=== PATIENT | female | born 1980 | race Caucasian/White ===

== ENCOUNTER 2024-04-24 10:12 | Outpatient (OUT) | payer BC, SELFPAY ==
[2024-04-24 11:44] LABS: Anion Gap 8.6; BUN Creatinine Ratio 18.6; Calcium 9.1 mg/dL (8.5-10.1); Carbon Dioxide 34.1 mmol/L (21.0-32.0); Chloride 102 mmol/L (98-107); Chol HDL Ratio 2.7; Cholesterol 206 mg/dL (<=200); Estimated GFR (African America >60 (>=60); Estimated GFR (Non-African Ame >60 (>=60); Glucose 96 mg/dL (74-106); HDL Cholesterol 76 mg/dL (40-60); Potassium 3.7 mmol/L (3.5-5.1); Sodium 141 mmol/L (136-145); Triglycerides 60 mg/dL (<=150)
== END 2024-04-24 10:13 | disposition home or self-care (01) ==
PROVIDERS: PCP Family Medicine; Visit Provider Family Medicine
DX: Z00.00 Encounter for general adult medical examination without abnormal findings (principal)
CPT/HCPCS: 36415; 80048; 80061

== ENCOUNTER 2024-12-12 10:51 | Observation (INO) | payer BC, SELFPAY ==
[2024-12-12] VITALS (54 sets, daily range): BP systolic 142–185; BP diastolic 74–114; PULSE 61–119; TEMP 36.8–37.1; O2SAT 86–98; BMI 62.0; BMI 66.1
--- NOTE | 2024-12-12 11:09 | ECG_ITS ---
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
[2024-12-12 11:44] LABS: Basophils Absolute Auto 0.1 10^3/uL (0.0-0.1); Basophils Percent Auto 0.8 % (0.2-2.0); Eosinophils Absolute Auto 0.1 10^3/uL (0.0-0.7); Eosinophils Percent Auto 0.8 % (0.9-7.0); Hematocrit 40.7 % (36.0-48.0); Hemoglobin 12.8 g/dL (12.0-16.0); Immature Granulocytes Abs Auto 0.03 10^3/uL (0.00-0.03); Immature Granulocytes Pct Auto 0.3 % (0.0-0.5); Lymphocytes Absolute Auto 0.9 10^3/uL (1.2-3.8); Mean Corpuscular HGB Conc 31.4 g/dL (29.9-35.2); Mean Corpuscular Hemoglobin 26.9 pg (26.7-34.0); Mean Corpuscular Volume 85.7 fL (81.0-99.0); Mean Platelet Volume 8.8 fL (9.5-13.5); Monocytes Absolute Auto 0.6 10^3/uL (0.3-0.8); Monocytes Percent Auto 5.6 % (1.7-12.0); Neutrophils Absolute Auto 8.7 10^3/uL (1.4-6.5); Neutrophils Percent Auto 83.5 % (43.0-75.0); Platelet Count 345 10^3/uL (150-450); Red Blood Count 4.75 10^6/uL (4.20-5.40); Red Cell Distribution Width 13.5 % (11.0-15.0); White Blood Count 10.4 10^3/uL (4.0-11.0)
[2024-12-12 11:48] LABS: Influenza Virus A Antigen Negative; Influenza Virus B Antigen Negative; Internal Control Within Normal Limits; SARS-CoV-2 Ag NEGATIVE (NEGATIVE)
[2024-12-12 11:59] LABS: Alanine Aminotransferase 118 U/L (14-59); Albumin Globulin Ratio 0.8; Alkaline Phosphatase 130 U/L (46-116); Anion Gap 11.3; Aspartate Amino Transferase 43 U/L (15-37); BUN Creatinine Ratio 14.6; Bilirubin Total 0.6 mg/dL (0.2-1.0); Calcium 8.6 mg/dL (8.5-10.1); Carbon Dioxide 30.6 mmol/L (21.0-32.0); Chloride 105 mmol/L (98-107); Estimated GFR (African America >60 (>=60 mL/min/1.73m^2); Estimated GFR (Non-African Ame >60 (>=60 mL/min/1.73m^2); Globulin 3.8 g/dL; Glucose 105 mg/dL (74-106); Potassium 3.9 mmol/L (3.5-5.1); Sodium 143 mmol/L (136-145); Total Protein 6.8 g/dL (6.4-8.2)
[2024-12-12 12:07] LABS: Troponin I High Sensitivity 23.4 pg/mL (4.0-51.3)
--- NOTE | 2024-12-12 12:12 | ED_ITS ---
HPI - SOB/Dyspnea General Chief Complaint: Shortness of Breath/Dyspnea Stated Complaint: SHORT OF BREATH Time Seen by Provider: 12/12/24 11:09 Source: patient Mode of arrival: Wheelchair Limitations: no limitations History of Present Illness HPI Narrative: The patient is a 44-year-old female is coming to us after she was evaluated by her primary care, apparently she has been having this bilateral leg edema that i s chronic but recently she has been having also shortness of breath, the patient has been having shortness of breath for the last 2 weeks she mentioned over the last few days got worse, at the baseline the patient is saturating at the lower 90s at 89 some time on exertion while she is at room air, the patient was provided with 2 L nasal cannula upon arrival The patient currently just take contraceptive she does not have any history of any hypertension or diabetes The patient also mentioned that she have a chronic leg edema she was noted to have bilateral 1+ edema on examination Related Data Home Medications ?Medication ?Instructions ?Recorded ?Confirmed norgestimate 0.25 mg-ethinyl 1 tab PO DAILY 12/12/24 0 12/12/24 estradiol 0.035 mg tablet (Sprintec (28)) Allergies Allergy/AdvReac Type Severity Reaction Status Date / Time No Known Drug Allergies Allergy Verified 12/12/24 11:01 Review of Systems ROS Status of ROS 10 or more systems reviewed and unremark able except as noted in history and below PFSH PFSH Social History Little interest or pleasure in doing things: not at all Feeling down, depressed, or hopeless: not at all Exam Narrative Exam Narrative: Nurses notes and vital signs reviewed and patient is not hypoxic. General: Well-appearing and in no apparent distress. Skin: Warm, dry, no pallor noted. No rash. Head: Normocephalic, atraumatic. Neck: Supple, non-tender. Eye: Pupils are equal, round and EOMI. No scleral icterus. Ears, Nose, Mouth, and Throat: TM are clear, no nasal mucosal hypertrophy. Ora l mucosa is moist, no posterior oropharynx erythema, uvula is mid-line Cardiovascular: Regular Rate and Rhythm without murmur, gallop or rub. Respiratory: Distant breathing sound bilaterally and mild expiratory wheezes that is distant Back: No midline thoracic or lumbar vertebral tenderness. No CVA tenderness Musculoskeletal: normal ROM, no calf or popliteal tenderness, 1+ pitting edema bilaterally GI: Abdomen is soft, non-distended. Normal bowel sounds. No masses appreciated. No tenderness to palpation. No rebound, guarding, or rigidity noted. Neurological: A&O x4. No cranial nerve dysfunction observed. Constitutional Vital Signs, click to edit/add: Last Vital Signs Temp 98.3 F 12/12/24 10:56 Pulse 105 H 12/12/24 13:58 Resp 24 H 12/12/24 11:30 BP 150/105 H 12/12/24 13:58 Pulse Ox 94 L 12/12/24 13:58 O2 Del Method Nasal Cannula 12/12/24 11:39 O2 Flow Rate 2 12/12/24 13:58 Course Vital Signs Vital signs: Vital Signs Temperature 98.3 F 12/12/24 10:56 Pulse Rate 104 H 12/12/24 10:56 Respiratory Rate 24 H 12/12/24 10:56 Blood Pressure 178/92 H 12/12/24 10:56 Pulse Oximetry 95 12/12/24 10:56 Oxygen Delivery Method Room Air 12/12/24 10:56 Temperature 98.3 F 12/12/24 10:56 Pulse Rate 105 H 12/12/24 13:58 Respiratory Rate 24 H 12/12/24 11:30 Blood Pressure 150/105 H 12/12/24 13:58 Pulse Oximetry 94 L 12/12/24 13:58 Oxygen Delivery Method Nasal Cannula 12/12/24 11:39 Oxygen Delivery Flow Rate 2 12/12/24 13:58 MDM - SOB/Dyspnea MDM Narrative Medical decision making narrative: The patient EKG upon arrival showing A-fib with a heart rate of [address] elevation noted although the patient does have some left bundle regulo block No previous EKG for comparison but the patient symptoms has been normal at least for a week The patient first troponin was negative her BNP up is more than 4000 CBC and chemistry showed no acute pathology but the D-dimer was elevated CT PE was negative The patient does have bilateral small effusion which could be secondary to CHF exacerbation Patient was started on Lasix 40 mg IV The patient had a CTPA that was negative after the D-dimer was elevated Yu catheter was placed Troponin repeated twice was negative The patient after 6 hours was feeling better and her rate is controlled at 83 with a Cardizem drip I discussed the case with Dr. Coleman and right now we will keep the patient here as she is improving The patient's case was discussed with and he agreed on admitting the patient for further evaluation Lab Data Labs: Lab Results 12/12/24 12/12/24 Range/Units 11:25 14:30 WBC 10.4 (4.0-11.0) 10^3/uL RBC 4.75 (4.20-5.40) 10^6/uL Hgb 12.8 (12.0-16.0) g/dL Hct 40.7 (36.0-48.0) % MCV 85.7 (81.0-99.0) fL MCH 26.9 (26.7-34.0) pg MCHC 31.4 (29.9-35.2) g/dL RDW 13.5 (11.0-15.0) % Plt Count 345 (150-450) 10^3/uL MPV 8.8 L (9.5-13.5) fL Neut % (Auto) 83.5 H (43.0-75.0) % Lymph % (Auto) 9.0 L (20.5-60.0) % [place] % (Auto) 5.6 (1.7-12.0) % Eos % (Auto) 0.8 L (0.9-7.0) % Baso % (Auto) 0.8 (0.2-2.0) % Neut # (Auto) 8.7 H (1.4-6.5) 10^3/uL Lymph # (Auto) 0.9 L (1.2-3.8) 10^3/uL [place] # (Auto) 0.6 (0.3-0.8) 10^3/uL Eos # (Auto) 0.1 (0.0-0.7) 10^3/uL Baso # (Auto) 0.1 (0.0-0.1) 10^3/uL Abs Immat Gran (auto) 0.03 (0.00-0.03) 10^3/uL Imm/Tot Granulo (auto) 0.3 (0.0-0.5) % D-Dimer 0.98 H* (<=0.59) mg/L FEU Sodium 143 (136-145) mmol/L Potassium 3.9 (3.5-5.1) mmol/L Chloride 105 (98-107) mmol/L Carbon Dioxide 30.6 (21.0-32.0) mmol/L Anion Gap 11.3 BUN 14.0 (7.0-18.0) mg/dL Creatinine 0.96 (0.55-1.02) mg/dL Est GFR ( Amer) >60 (>=60 mL/min/1.73m^2) Est GFR (Non-Af Amer) >60 (>=60 mL/min/1.73m^2) BUN/Creatinine Ratio 14.6 Glucose 105 (74-106) mg/dL Calcium 8.6 (8.5-10.1) mg/dL Total Bilirubin 0.6 (0.2-1.0) mg/dL AST 43 H (15-37) U/L ALT 118 H (14-59) U/L Alkaline Phosphatase 130 H (46-116) U/L Troponin I High Sens 23.4 25.9 (4.0-51.3) pg/mL NT-Pro-B Natriuret Pep 4405.0 H* (<=450.0) pg/mL Total Protein 6.8 (6.4-8.2) g/dL Albumin 3.0 L (3.4-5.0) g/dL Globulin 3.8 g/dL Albumin/Globulin Ratio 0.8 Serum HCG, Qual Negative (NEGATIVE) Influenza Type A Ag Negative Influenza Type B Ag Negative SARS-CoV-2 Ag (CV2AG) Negative (NEGATIVE) Discharge Plan Discharge Chief Complaint: Shortness of Breath/Dyspnea Clinical Impression: Atrial fibrillation with RVR, CHF exacerbation Patient Disposition: General Acute Hospital Time of Disposition Decision: 16:34 Condition: Good
[2024-12-12] MEDS: DILTIAZEM HCL 25 MG/5 ML VIAL 20 MG IV (12:31)
[2024-12-12] MEDS: FUROSEMIDE 40 MG/4 ML VIAL IVP ×2 (12:31→20:11)
--- NOTE | 2024-12-12 12:36 | PC.NURSE ---
ASSISTED PT TO BEDSIDE COMMODE AT THIS TIME
[2024-12-12] MEDS: dilTIAZem HCL 125 MG in 0.9 % SODIUM CHLORIDE 100 ML 10 MG IV ×2 (12:53→20:08)
[2024-12-12 12:59] LABS: D Dimer 0.98 mg/L FEU (<=0.59)
[2024-12-12 14:10] LABS: HCG Qualitative NEGATIVE (NEGATIVE); Internal Control Within Normal Limits
[2024-12-12 14:58] LABS: Troponin I High Sensitivity 25.9 pg/mL (4.0-51.3)
--- NOTE | 2024-12-12 18:50 | PC.NURSE ---
pt admitted to step down, report obtained from er nurse. pt oriented to room and call light. denies pain, is sob with conversation. stated she had a stomach bug 2 weeks ago and then got a sinus infection since then has had increased sob. pt stated she saw her pcp today who sent her to er. pt stated she was to start metoprolol and fluoxetine in Sep but never did. denies needs at this time. advised pt to call for assistance.
[2024-12-12] MEDS: HYDRALAZINE HCL 20 MG/ML VIAL 10 MG IVP (19:23)
[2024-12-12] MEDS: METOPROLOL TARTRATE 25 MG TABLET PO (20:10)
[2024-12-12] MEDS: APIXABAN 5 MG TABLET PO (20:10)
[2024-12-13] VITALS (28 sets, daily range): BP systolic 137–189; BP diastolic 81–118; PULSE 68–94; TEMP 36.4–36.8; O2SAT 91–97
[2024-12-13] MEDS: HYDRALAZINE HCL 20 MG/ML VIAL 10 MG IVP (04:24)
[2024-12-13 06:20] LABS: Basophils Absolute Auto 0.1 10^3/uL (0.0-0.1); Basophils Percent Auto 0.6 % (0.2-2.0); Eosinophils Absolute Auto 0.2 10^3/uL (0.0-0.7); Eosinophils Percent Auto 2.6 % (0.9-7.0); Hematocrit 39.7 % (36.0-48.0); Hemoglobin 12.7 g/dL (12.0-16.0); Immature Granulocytes Abs Auto 0.02 10^3/uL (0.00-0.03); Immature Granulocytes Pct Auto 0.2 % (0.0-0.5); Lymphocytes Absolute Auto 1.1 10^3/uL (1.2-3.8); Lymphocytes Percent Auto 13.6 % (20.5-60.0); Mean Corpuscular Hemoglobin 27.4 pg (26.7-34.0); Mean Corpuscular Volume 85.6 fL (81.0-99.0); Mean Platelet Volume 8.8 fL (9.5-13.5); Monocytes Absolute Auto 0.6 10^3/uL (0.3-0.8); Monocytes Percent Auto 6.8 % (1.7-12.0); Neutrophils Absolute Auto 6.3 10^3/uL (1.4-6.5); Neutrophils Percent Auto 76.2 % (43.0-75.0); Platelet Count 311 10^3/uL (150-450); Red Blood Count 4.64 10^6/uL (4.20-5.40); Red Cell Distribution Width 13.9 % (11.0-15.0); White Blood Count 8.2 10^3/uL (4.0-11.0)
[2024-12-13 06:33] LABS: Alanine Aminotransferase 104 U/L (14-59); Albumin Globulin Ratio 0.8; Albumin Level 2.9 g/dL (3.4-5.0); Alkaline Phosphatase 116 U/L (46-116); Anion Gap 9.6; Aspartate Amino Transferase 38 U/L (15-37); BUN Creatinine Ratio 15.5; Bilirubin Total 0.6 mg/dL (0.2-1.0); Calcium 8.8 mg/dL (8.5-10.1); Carbon Dioxide 34.1 mmol/L (21.0-32.0); Chloride 103 mmol/L (98-107); Estimated GFR (African America >60 (>=60 mL/min/1.73m^2); Estimated GFR (Non-African Ame >60 (>=60 mL/min/1.73m^2); Globulin 3.5 g/dL; Glucose 95 mg/dL (74-106); Magnesium 2.2 mg/dL (1.8-2.4); Potassium 3.7 mmol/L (3.5-5.1); Sodium 143 mmol/L (136-145); Total Protein 6.4 g/dL (6.4-8.2)
[2024-12-13] MEDS: APIXABAN 5 MG TABLET PO (08:06)
[2024-12-13] MEDS: METOPROLOL TARTRATE 25 MG TABLET PO (08:06)
[2024-12-13] MEDS: ACETAMINOPHEN 500 MG TABLET 1000 MG PO (09:03)
[2024-12-13] MEDS: FUROSEMIDE 40 MG/4 ML VIAL IVP (09:03)
[2024-12-13 09:12] LABS: TSH W/ REFLEX FT4 3.295 uIU/mL (0.358-3.740)
--- NOTE | 2024-12-13 10:47 | CM.NOTE ---
Rounds made with Dr. Salguero, pt will have echo today. Dr. Salguero discussed reason for admission, diagnosis, and plan of care. Pt will need a outpt workup for sleep apnea (PCP will need to order sleep study as outpatient). Pt will also discharge on Metoprolol and Eliquis, pt verbalizes understanding of medications. No discharge needs identified. Pt will discharge to home this afternoon if echo normal.
--- NOTE | 2024-12-13 11:39 | PM.HP ---
HPI H&P: HPI History of Present Illness Chief complaint: SHORT OF BREATH, a fib chf exacerbation Narrative: 44 y/o morbidly obese female to ER with SOB and swelling in legs. Chronic edema but worse over past few days. C/o worsening SOB for about 2 weeks. To ER and found afib with RVR. Denies feeling palpitations and no chest pain. BNP elevated and chest x-ray with evidence of fluid overload. Given IV cardizem and started drip. Admitted for treatment. Added oral metoprolol and IV lasix. Added oral Eliquis. Pulse improved and off cardizem but remains in afib. Edema much improved and overall feels better. Discussed risk factors for afib and patient reports symptoms consistent with LEA. Opioid HPI Opioid Management Most Recent Pain and Opioid Data: Last Pain Scale 0 Today, 09:50 Last Pain Assessment 12/12/24, 19:00 Last MAR Pain Assessment Today, 09:03 Last ORT Total Score 0 12/12/24, 18:24 Last ORT Risk Category Low Risk 12/12/24, 18:24 Review of Systems ROS Constitutional Denies: fever, chills or fatigue Cardiovascular Reports: edema; Denies: chest pain or palpitations Respiratory Reports: shortness of breath; Denies: cough or wheezing Gastrointestinal Denies: abdominal pain, nausea, vomiting or diarrhea Genitourinary Denies: painful urination [facility] Medical History (Updated 12/12/24 @ 18:41 by Brenda Ashraf) Cyst of ovary, right ?N83.201 - Unspecified ovarian cyst, right side (ICD-10) Anxiety ?F41.9 - Anxiety disorder, unspecified (ICD-10) HTN (hypertension) ?I10 - Essential (primary) hypertension (ICD-10) Surgical History (Updated 12/12/24 @ 18:41 by Brenda Ashraf) History of foot surgery ?Z98.890 - Other specified postprocedural states (ICD-10) History of appendectomy ?Z90.49 - Acquired absence of other specified parts of digestive tract (ICD-10) Hx of cholecystectomy ?Z90.49 - Acquired absence of other specified parts of digestive tract (ICD-10) Hx of tonsillectomy ?Z90.89 - Acquired absence of other organs (ICD-10) History of placement of ear tubes ?Z96.22 - Myringotomy tube(s) status (ICD-10) Social History (Updated 12/12/24 @ 18:41 by Brenda Ashraf) Within the past year, how often did you have a drink containing alcohol: never Score interpretation: A score less than 3 is consistent with normal alcohol consumption. Smoking status: Never smoker Highest level of school completed/degree received: some college, no degree Little interest or pleasure in doing things: not at all Feeling down, depressed, or hopeless: not at all Do you think of yourself as: straight/heterosexual Gender Identity: female Meds Home Medications and Allergies Home Medications ?Medication ?Instructions ?Recorded ?Confirmed ?Type norgestimate 0.25 mg-ethinyl 1 tab PO DAILY 12/12/24 12/12/24 History estradiol 0.035 mg tablet (Sprintec (28)) apixaban 5 mg tablet (Eliquis) 5 mg PO BID #60 tabs 12/13/24 Rx furosemide 40 mg tablet 40 mg PO DAILY #30 tabs 12/13/24 Rx metoprolol tartrate 25 mg tablet 25 mg PO BID #60 tabs 12/13/24 Rx Allergies Allergy/AdvReac Type Severity Reaction Status Date / Time No Known Drug Allergies Allergy Verified 12/12/24 11:01 Exam Constitutional Vital Signs, click to edit/add: Last Vital Signs Temp 98.2 F 12/13/24 07:33 Pulse 76 12/13/24 10:07 Resp 17 12/13/24 10:00 BP 137/118 H 12/13/24 09:03 Pulse Ox 96 12/13/24 10:07 O2 Del Method Room Air 12/13/24 09:36 O2 Flow Rate 2 12/13/24 07:33 Documenting provider has reviewed patient's vital signs: yes Common normals: oriented x3 and alert HENMT Common normals: normocephalic Eye Common normals: PERRL and EOMs intact bilaterally Respiratory Common normals: normal respiratory effort and clear to auscultation bilaterally Cardio Common normals: regular rate, no gallops, no murmurs and no rub Rhythm: abnormal rhythm irregularly irregular GI Common normals: Normal to inspection, nondistended, normoactive bowel sounds present and non-tender Extremity General: edema (2+ bipedal edema) Results Labs Labs: Short CBC 12/12/24 12/13/24 Range/Units 11:25 06:05 WBC 10.4 8.2 (4.0-11.0) 10^3/uL Hgb 12.8 12.7 (12.0-16.0) g/dL Hct 40.7 39.7 (36.0-48.0) % Plt Count 345 311 (150-450) 10^3/uL BMP 12/12/24 12/13/24 11:25 06:05 Sodium 143 143 Potassium 3.9 3.7 Chloride 105 103 Carbon Dioxide 30.6 34.1 H BUN 14.0 13.0 Creatinine 0.96 0.84 Glucose 105 95 Calcium 8.6 8.8 Liver Function 12/12/24 12/13/24 Range/Units 11: 06:05 Total Bilirubin 0.6 0.6 (0.2-1.0) mg/dL AST 43 H 38 H (15-37) U/L ALT 118 H 104 H (14-59) U/L Alkaline Phosphatase 130 H 116 (46-116) U/L Albumin 3.0 L 2.9 L (3.4-5.0) g/dL Assessment and Plan Assessment and Plan (1) Atrial fibrillation with RVR: (2) CHF exacerbation: (3) Morbid obesity due to excess calories: Plan Presented with rapid afib and rate controlled with metoprolol. Remains in afib and monitor. Started IV lasix for edema and CHF and diuresed well. Patient likely with untreated LEA triggering afib. Echo performed and showed calculated EF 55-60%. Symptoms significantly improved and discharge home. Will arrange for outpatient follow up with cardiology. Will continue metoprolol, Eliquis, and lasix. Patient will need sleep study as outpatient. Urinary Catheter Management Urinary Catheter Management Urethral: Cath placed during this visit: yes Urethral indwelling: Yes Reason for continuing: measure accurate output Insertion date: 12/12/24
[2024-12-13] MEDS: LOSARTAN POTASSIUM 25 MG TABLET PO (13:39)
--- NOTE | 2024-12-13 13:50 | CM.NOTE ---
Patient provided with 30 day free trial and 10 dollar co-pay cards for Eliquis. Pt verbalizes understanding of new medications and reasons for taking.
--- NOTE | 2024-12-13 18:23 | CA_ITS ---
Patient Name: JACOB NGUYEN MR#: [id number] : 1980 Exam Date: 12/13/2024 Ordering Doctor: DR NAHOMY GOLD . ECHOCARDIOGRAM REPORT PROCEDURE: CA ECHO DOPPLER COMPLETE INDICATIONS: CHF, afib, hypertension COMPARISON: None. DESCRIPTION: COMPLETE ECHOCARDIOGRAM Real-time transthoracic echocardiography with 2D, M-mode, spectral and color flow Doppler performed. QUALITY: Technical quality was good. LEFT VENTRICLE: Normal chamber size. Moderate to severe concentric left ventricular hypertrophy. Normal systolic function. LV EF: Normal left ventricular ejection fraction, (>55%). DIASTOLIC: Unable to assess diastolic function due to rhythm. ATRIAL SEPTUM: LEFT ATRIUM: Mild dilatation. RIGHT ATRIUM: Normal chamber size. RIGHT VENTRICLE: Normal chamber size. Normal systolic function. TRICUSPID VALVE: Normal mobility and thickness. No stenosis with no regurgitation. MITRAL VALVE: Normal mobility and thickness. No evidence of mitral valve stenosis. There is no mitral annular calcification. Trivial mitral regurgitation. AORTIC VALVE: Normal trileaflet appearance. No visible sclerosis. Normal leaflet mobility. No evidence of aortic valve stenosis. No aortic regurgitation. AORTIC ROOT: Normal diameter and appearance, measuring 2.9 cm. Ascending aorta is normal in size, measuring 3.0 cm. PULMONIC VALVE: Normal thickness and mobility. No stenosis. No regurgitation. PERICARDIUM: No evidence of pericardial effusion. IVC: Not well visualized. PLEURA: CONCLUSION: 1. Moderate to severe concentric left ventricular hypertrophy with normal systolic function. Estimated LVEF is 65 to 70%. 2. Normal right ventricular size and systolic function. 3. No significant valvular dysfunction. 4. No pericardial effusion. 5. Depending on the clinical picture, further cardiac imaging such as cardiac MRI would be helpful to define the etiology and extent of the left ventricular hypertrophy. Adult Echocardiography Procedure Report Left Ventricle LVEDD (3.7 - 5.6 cm): 4.69 cm LVESD (2.2 - 4.0 cm): 3.16 cm LVIVS thickness (0.6 - 1.2 cm): 1.74 cm LVPW thickness (0.5 - 1.0 cm): 1.42 cm LVOT Max Gradient: 3.98 mm[Hg] LVOT Area (cm2): 1.00 m/s Peak Velocity (LVOT): 1.00 m/s Mean Velocity (LVOT): 0.63 m/s LVOT Diameter 2.39 cm Left Atrium LA Volume Index (2D A2C): 39.86 ml/m2 Left Atrium Systolic Dimension: 4.49 cm Mitral Valve MV E to A Ratio: 4.58 Mitral Valve A-Wave Peak Velocity: 0.24 m/s Mitral Valve E-Wave Peak Velocity: 1.09 m/s Right Ventricle Aorta AO Root Diam: 2.89 cm Ascending Ao Diam: 3.02 cm Aortic Valve AoV Area (Peak Ross): 3.02 cm2, 3.02 cm2 AoV Area (VTI): 2.86 cm2, 2.86 cm2 Peak Velocity(Antegrade Flow): 1.49 m/s Peak Gradient(Antegrade Flow): 8.84 mm[Hg] Mean Velocity(Antegrade Flow): 0.95 m/s Mean Gradient(Antegrade Flow): 4.50 mm[Hg] Velocity Time Integral: 31.42 cm Tricuspid Valve Pulmonic Valve Mean Gradient: 5.63 mm[Hg] Mean Velocity: 1.08 m/s Peak Velocity: 1.78 m/s, 1.46 m/s Peak Gradient: 8.53 mm[Hg], 12.71 mm[Hg] Right Atrium Right Atrium Systolic Pressure: 50.39 ml, 50.39 ml Dictated by: Josue Griffin M.D. on 12/13/2024 at 18:27 Approved by: Josue Griffin M.D. on 12/13/2024 at 18:32
--- NOTE | 2024-12-14 14:32 | CM.DCFOLLOWU ---
Person spoke with: patient How are you feeling? well How is your pain?none Did you understand your discharge instructions? yes Do you have any questions about your discharge instructions?no Were you given any prescriptions at discharge?yes Were you able to get your prescriptions filled?yes Do you understand how to take your medications as ordered?yes Do you have any questions about your follow up appointment and do you plan to keep your follow up appointment? no questions, reviewed follow ups and had to re-schedule one Is there anything else that you would like to discuss? no Questions/Comments/Concerns/Other: none
== END 2024-12-13 14:25 | disposition home or self-care (01) ==
LOC: ER 17:04 → MS 12-13 08:37
PROVIDERS: Admitting Provider Family Medicine; Emergency Provider Emergency Medicine; PCP Family Medicine; Visit Provider Family Medicine
DX: I48.91 Unspecified atrial fibrillation (principal); E66.01 Morbid (severe) obesity due to excess calories; I50.9 Heart failure, unspecified; Z90.49 Acquired absence of other specified parts of digestive tract; Z68.44 Body mass index [BMI] 60.0-69.9, adult; R79.89 Other specified abnormal findings of blood chemistry; R06.02 Shortness of breath
CPT/HCPCS: 36415; 71045; 71275; 80053; 83735; 83880; 84443; 84484; 84703; 85025; 85378; 87804; 87811; 93005; 93306; 94761; 96365; 96366; 96368; 96375; 96376; 99285; G0378; J0360; J1938; Q9967

== ENCOUNTER 2024-12-19 06:43 | Emergency (ER) | payer BC, SELFPAY ==
[2024-12-19] VITALS (16 sets, daily range): BP systolic 156; BP diastolic 82; PULSE 82–101; TEMP 36.7; O2SAT 92–98; BMI 62.0
--- NOTE | 2024-12-19 07:06 | ECG_ITS ---
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
--- NOTE | 2024-12-19 07:06 | ED.SOB1 ---
HPI - SOB/Dyspnea General Chief Complaint: Shortness of Breath/Dyspnea Stated Complaint: SOB Time Seen by Provider: 12/19/24 07:05 Source: patient Mode of arrival: walk-in Limitations: no limitations History of Present Illness HPI Narrative: The patient is a 44-year-old female who recently was evaluated for A-fib RVR admitted to the hospital and got treated also discharged after she was started on Lasix, the patient just started work yesterday when she started feeling dizzy and sometimes she have chest pain. Although she does not have the pain at the moment sometimes will have the pain not specifically with exertion it is on the left side of the chest sometime in the upper and sometimes the lower. And no relation of the pain with exertion and no relation to taking a deep breath. Usually it comes for few seconds The patient mentioned that she was at work when she was initially tired and short of breath but she felt dizzy when she was trying to grab something from the floor The patient mentioned that she did not take her Lasix last night as well as this morning Related Data Home Medications ?Medication ?Instructions ?Recorded ?Confirmed norgestimate 0.25 mg-ethinyl 1 tab PO DAILY 12/12/24 12/19/24 estradiol 0.035 mg tablet (Sprintec (28)) Previous Rx's ?Medication ?Instructions ?Recorded apixaban 5 mg tablet (Eliquis) 5 mg PO BID #60 tabs 12/13/24 furosemide 40 mg tablet 40 mg PO DAILY #30 tabs 12/13/24 losartan 25 mg tablet 25 mg PO QD #30 tabs 12/13/24 metoprolol tartrate 25 mg tablet 25 mg PO BID #60 tabs 12/13/24 Allergies Allergy/AdvReac Type Severity Reaction Status Date / Time No Known Drug Allergies Allergy Verified 12/19/24 06:58 Review of Systems ROS Status of ROS 10 or more systems reviewed and unremarkable except as noted in history and below [facility] Medical History (Updated 12/19/24 @ 09:08 by Tamara Rowe MD) Morbid obesity due to excess calories ?E66.01 - Morbid (severe) obesity due to excess calories (ICD-10) CHF exacerbation ?I50.9 - Heart failure, unspecified (ICD-10) Atrial fibrillation with RVR ?I48.91 - Unspecified atrial fibrillation (ICD-10) Cyst of ovary, right ?N83.201 - Unspecified ovarian cyst, right side (ICD-10) Anxiety ?F41.9 - Anxiety disorder, unspecified (ICD-10) HTN (hypertension) ?I10 - Essential (primary) hypertension (ICD-10) Surgical History (Updated 12/12/24 @ 18:41 by Brenda Ashraf) History of foot surgery ?Z98.890 - Other specified postprocedural states (ICD-10) History of appendectomy ?Z90.49 - Acquired absence of other specified parts of digestive tract (ICD-10) Hx of cholecystectomy ?Z90.49 - Acquired absence of other specified parts of digestive tract (ICD-10) Hx of tonsillectomy ?Z90.89 - Acquired absence of other organs (ICD-10) History of placement of ear tubes ?Z96.22 - Myringotomy tube(s) status (ICD-10) Social History (Updated 12/12/24 @ 18:41 by Brenda Ashraf) Within the past year, how often did you have a drink containing alcohol: never Score interpretation: A score less than 3 is consistent with normal alcohol consumption. Smoking status: Never smoker Highest level of school completed/degree received: some college, no degree Little interest or pleasure in doing things: not at all Feeling down, depressed, or hopeless: not at all Do you think of yourself as: straight/heterosexual Gender Identity: female Exam Narrative Exam Narrative: Nurses notes and vital signs reviewed and patient is not hypoxic. General: Well-appearing and in no apparent distress. Skin: Warm, dry, no pallor noted. No rash. Head: Normocephalic, atraumatic. Neck: Supple, non-tender. Eye: Pupils are equal, round and EOMI. No scleral icterus. Ears, Nose, Mouth, and Throat: TM are clear, no nasal mucosal hypertrophy. Oral mucosa is moist, no posterior oropharynx erythema, uvula is mid-line Cardiovascular: Regular Rate and Rhythm without murmur, gallop or rub. Respiratory: No accessory muscle use or respiratory distress. Lungs are clear to auscultation, no wheezing, rales or rhonchi Chest Wall: no tenderness Back: No midline thoracic or lumbar vertebral tenderness. No CVA tenderness Musculoskeletal: normal ROM, no calf or popliteal tenderness, there is chronic bilateral lower extremity edema up to the knee level that is 1+ pitting GI: Abdomen is soft, non-distended. Normal bowel sounds. No masses appreciated. No tenderness to palpation. No rebound, guarding, or rigidity noted. Neurological: A&O x4. No cranial nerve dysfunction observed. No truncal ataxia. Moves all extremities. Sensation intact. Psychiatric: Cooperative and interactive. Normal mood and affect. Constitutional Vital Signs, click to edit/add: Last Vital Signs Temp 98.0 F 12/19/24 06:46 Pulse 90 12/19/24 08:40 Resp 19 12/19/24 08:40 BP 156/82 H 12/19/24 06:46 Pulse Ox 97 12/19/24 09:10 O2 Del Method Room Air 12/19/24 08:38 Course Vital Signs Vital signs: Vital Signs Temperature 98.0 F 12/19/24 06:46 Pulse Rate 97 H 12/19/24 06:46 Respiratory Rate 20 12/19/24 06:46 Blood Pressure 156/82 H 12/19/24 06:46 Pulse Oximetry 94 L 12/19/24 06:46 Oxygen Delivery Method Room Air 12/19/24 06:46 Temperature 98.0 F 12/19/24 06:46 Pulse Rate 90 12/19/24 08:40 Respiratory Rate 19 12/19/24 08:40 Blood Pressure 156/82 H 12/19/24 06:46 Pulse Oximetry 97 12/19/24 09:10 Oxygen Delivery Method Room Air 12/19/24 08:38 MDM - SOB/Dyspnea MDM Narrative Medical decision making narrative: The patient EKG showing A-fib with a heart rate of 103 the patient does not have any ST elevation with nonspecific changes Patient chest x-ray showed that she have some pulmonary vascular and interstitial prominence The patient CBC and chemistry showed no acute pathology the BNP was elevated but this is less than what it was few days ago it was is 4000 The patient troponin is negative and the patient does not have any pain at the moment her pain description is more of noncardiac as it is not related to exertion and comes with few seconds could be pleuritic The patient was able to ambulate here in the ER with no difficulty and no drop in her pulse ox The chest x-ray shows some prominence but this is also seen in the previous x-ray as well Did explain to the patient that the fact that she was discharged and she was resting before going to work yesterday could have exposure to deconditioning especially with her BMI being 62 this puts her at risk for deconditioning from recently being admitted The patient offered to have another day off work but she was instructed about taking her medication especially Lasix as prescribed Patient to come back to the ER in case of any worsening of her symptoms Patient advised to have the workup as outpatient for sleep apnea The patient is to follow up with primary care physician in next 2-3 days or to return to the emergency department should any of the signs or symptoms worsen or new symptoms develop. The patient agrees with the following Diagnosis and Treatment plan and the patient will be discharged home. Lab Data Labs: Lab Results 12/19/24 Range/Units 07:10 WBC 7.4 (4.0-11.0) 10^3/uL RBC 4.57 (4.20-5.40) 10^6/uL Hgb 12.5 (12.0-16.0) g/dL Hct 38.8 (36.0-48.0) % MCV 84.9 (81.0-99.0) fL MCH 27.4 (26.7-34.0) pg MCHC 32.2 (29.9-35.2) g/dL RDW 13.7 (11.0-15.0) % Plt Count 290 (150-450) 10^3/uL MPV 8.9 L (9.5-13.5) fL Neut % (Auto) 75.6 H (43.0-75.0) % Lymph % (Auto) 13.5 L (20.5-60.0) % [place] % (Auto) 7.4 (1.7-12.0) % Eos % (Auto) 2.2 (0.9-7.0) % Baso % (Auto) 0.9 (0.2-2.0) % Neut # (Auto) 5.6 (1.4-6.5) 10^3/uL Lymph # (Auto) 1.0 L (1.2-3.8) 10^3/uL [place] # (Auto) 0.6 (0.3-0.8) 10^3/uL Eos # (Auto) 0.2 (0.0-0.7) 10^3/uL Baso # (Auto) 0.1 (0.0-0.1) 10^3/uL Abs Immat Gran (auto) 0.03 (0.00-0.03) 10^3/uL Imm/Tot Granulo (auto) 0.4 (0.0-0.5) % PT 10.3 (9.0-11.6) sec INR 0.97 Sodium 138 (136-145) mmol/L Potassium 4.2 (3.5-5.1) mmol/L Chloride 100 (98-107) mmol/L Carbon Dioxide 30.6 (21.0-32.0) mmol/L Anion Gap 11.6 BUN 19.0 H (7.0-18.0) mg/dL Creatinine 0.82 (0.55-1.02) mg/dL Est GFR ( Amer) >60 (>=60 mL/min/1.73m^2) Est GFR (Non-Af Amer) >60 (>=60 mL/min/1.73m^2) BUN/Creatinine Ratio 23.2 Glucose 100 (74-106) mg/dL Calcium 8.3 L (8.5-10.1) mg/dL Total Bilirubin 0.7 (0.2-1.0) mg/dL AST 16 (15-37) U/L ALT 45 (14-59) U/L Alkaline Phosphatase 99 (46-116) U/L Troponin I High Sens 17.6 (4.0-51.3) pg/mL NT-Pro-B Natriuret Pep 2362.0 H* (<=450.0) pg/mL Total Protein 6.8 (6.4-8.2) g/dL Albumin 3.1 L (3.4-5.0) g/dL Globulin 3.7 g/dL Albumin/Globulin Ratio 0.8 Discharge Plan Discharge Chief Complaint: Shortness of Breath/Dyspnea Clinical Impression: Shortness of breath, Physical deconditioning Patient Disposition: Home, Self-Care Time of Disposition Decision: 09:07 Condition: Good Prescriptions / Home Meds: No Action norgestimate-ethinyl estradiol [Sprintec (28)] 0.25-0.035 mg tablet 1 tab PO DAILY Eliquis 5 mg Tablet 5 mg PO BID Qty: 60 0RF metoprolol tartrate 25 mg Tablet 25 mg PO BID Qty: 60 0RF furosemide 40 mg tablet 40 mg PO DAILY Qty: 30 0RF losartan 25 mg Tablet 25 mg PO QD Qty: 30 0RF Print Language: Tristanian Instructions: Shortness of Breath (ED) Referrals: Priya Hill MD [Primary Care Provider, Family Practice] - 1 week
[2024-12-19 07:19] LABS: Basophils Absolute Auto 0.1 10^3/uL (0.0-0.1); Basophils Percent Auto 0.9 % (0.2-2.0); Eosinophils Absolute Auto 0.2 10^3/uL (0.0-0.7); Eosinophils Percent Auto 2.2 % (0.9-7.0); Hematocrit 38.8 % (36.0-48.0); Hemoglobin 12.5 g/dL (12.0-16.0); Immature Granulocytes Abs Auto 0.03 10^3/uL (0.00-0.03); Immature Granulocytes Pct Auto 0.4 % (0.0-0.5); Lymphocytes Percent Auto 13.5 % (20.5-60.0); Mean Corpuscular HGB Conc 32.2 g/dL (29.9-35.2); Mean Corpuscular Hemoglobin 27.4 pg (26.7-34.0); Mean Corpuscular Volume 84.9 fL (81.0-99.0); Mean Platelet Volume 8.9 fL (9.5-13.5); Monocytes Absolute Auto 0.6 10^3/uL (0.3-0.8); Monocytes Percent Auto 7.4 % (1.7-12.0); Neutrophils Absolute Auto 5.6 10^3/uL (1.4-6.5); Neutrophils Percent Auto 75.6 % (43.0-75.0); Platelet Count 290 10^3/uL (150-450); Red Blood Count 4.57 10^6/uL (4.20-5.40); Red Cell Distribution Width 13.7 % (11.0-15.0); White Blood Count 7.4 10^3/uL (4.0-11.0)
[2024-12-19 07:34] LABS: INR 0.97; Prothrombin Time 10.3 sec (9.0-11.6)
[2024-12-19 07:46] LABS: Alanine Aminotransferase 45 U/L (14-59); Albumin Globulin Ratio 0.8; Albumin Level 3.1 g/dL (3.4-5.0); Alkaline Phosphatase 99 U/L (46-116); Anion Gap 11.6; Aspartate Amino Transferase 16 U/L (15-37); BUN Creatinine Ratio 23.2; Bilirubin Total 0.7 mg/dL (0.2-1.0); Calcium 8.3 mg/dL (8.5-10.1); Carbon Dioxide 30.6 mmol/L (21.0-32.0); Chloride 100 mmol/L (98-107); Estimated GFR (African America >60 (>=60 mL/min/1.73m^2); Estimated GFR (Non-African Ame >60 (>=60 mL/min/1.73m^2); Globulin 3.7 g/dL; Glucose 100 mg/dL (74-106); Potassium 4.2 mmol/L (3.5-5.1); Sodium 138 mmol/L (136-145); Total Protein 6.8 g/dL (6.4-8.2); Troponin I High Sensitivity 17.6 pg/mL (4.0-51.3)
== END 2024-12-19 09:24 | disposition home or self-care (01) ==
PROVIDERS: Emergency Provider Emergency Medicine; PCP Family Medicine
DX: R06.02 Shortness of breath (principal); Z90.49 Acquired absence of other specified parts of digestive tract; I48.91 Unspecified atrial fibrillation; R53.81 Other malaise
CPT/HCPCS: 36415; 71045; 80053; 83880; 84484; 85025; 85610; 93005; 99285

== ENCOUNTER 2025-01-23 20:39 | Outpatient (OUT) | payer BC, SELFPAY ==
--- OUTSIDE RECORDS SUMMARY | 2025-01-23 20:42 | XMS_ITS | Referral Summary ---
Author Organization [facility] Address [address] [place] [address] Care Team Providers Care Food Cashier Name Role Phone Priya Hill MD Primary Care Provider [phone] Encounters Date Type Department Care Team Description 01/10/2025 Refill [facility] [address] [place] [phone] Bernice Garcia MA Atrial fibrillation with RVR (CMS/HCC) 12/22/2024 2:40 PM EDT Office Visit [facility] [address] [place] [address] Erika Fournier MD Atrial fibrillation with RVR (CMS/HCC) (Primary Dx); Acute heart failure with normal ejection fraction (CMS/HCC); Benign hypertensive heart disease with heart failure (CMS/HCC); Left ventricular hypertrophy; Hyperlipidemia, unspecified hyperlipidemia type; Morbid obesity (CMS/HCC); Sleep apnea, unspecified type from Last 3 Months Allergies No known active allergies Medications Medication Sig Dispensed Refills Start Date End Date Status metoprolol tartrate (Lopressor) 25 mg tablet Take 25 mg by mouth two times daily. 12/13/2024 Active furosemide (Lasix) 40 mg tablet Take 40 mg by mouth in the morning. 12/13/2024 Active losartan (Cozaar) 25 mg tablet Take 25 mg by mouth in the morning. 12/13/2024 Active Sprintec, 28, 0.25-35 mg-mcg tablet Take 1 tablet by mouth in the morning. 10/06/2024 Active spironolactone (Aldactone) 50 mg tabletIndications:B enign hypertensive heart disease with heart failure (CMS/HCC) Take 1 tablet (50 mg) by mouth in the morning. 90 tablet 3 12/22/2024 12/22/2025 Active furosemide (Lasix) 80 mg tabletIndications:B enign hypertensive heart disease with heart failure (CMS/HCC) Take 1 tablet (80 mg) by mouth in the morning. 90 tablet 3 12/22/2024 12/22/2025 Active metoprolol tartrate (Lopressor) 50 mg tabletIndications:A trial fibrillation with RVR (CMS/HCC) Take 1 tablet (50 mg) by mouth two times daily. 180 tablet 3 12/22/2024 12/22/2025 Active apixaban (Eliquis) 5 mg tabletIndications:A trial fibrillation with RVR (CMS/HCC) Take 1 tablet (5 mg) by mouth two times daily. 180 tablet 3 01/10/2025 01/10/2026 Active apixaban (Eliquis) 5 mg tablet Take 5 mg by mouth two times daily. 01/10/2025 Discontinued (Reorder) Active Problems Problem Noted Date Diagnosed Date Atrial fibrillation with RVR 12/24/2024 Immunizations Name Administration Dates Next Due Influenza, injectable, quadrivalent 07/11/2014 Influenza, recombinant, quad rivalent, injectable, preservative free 06/16/2019 Novel [id number], nasal 08/01/2009 Social History Tobacco Use Types Packs/Day Years Used Date Smoking Tobacco: Never Smokeless Tobacco: Never Tobacco Cessation:Counseling Given: Not Answered Alcohol Use Standard Drinks/Week Comments Not Currently 0 (1 standard drink = 0.6 oz pur e alcohol) Sex and Gender Information Value Date Recorded Sex Assigned at Female 12/18/2024 5:43 PM EDT Gender Identity Female 12/18/2024 5:43 PM EDT Sexual Orientation Heterosexual or Straight 12/2024 5:43 PM EDT Last Filed Vital Signs Vital Sign Reading Time Taken Comments Blood Pressure 168/90 12/22/2024 1:13 PM EDT Pulse 85 12/22/2024 1:13 PM EDT Temperature - - Respiratory Rate - - Oxygen Saturation 94% 12/22/2024 1:13 PM EDT Inhaled Oxygen Concentration - - Weight 164 kg (362 lb) 12/22/2024 1:13 PM EDT Height 160 cm (5' 3 ) 12/22/2024 1:13 PM EDT Body Mass Index 64.13 12/22/2024 1:13 PM EDT Plan of Treatment Upcoming Encounters Date Type Department Care Team (Latest Contact Info) Description 02/06/2025 11:05 AM EDT Hospital Encounter [facility] Heart [facility] [address] [place] [phone] Andrea Lens Silverer, [address] [place] [address] Atrial fibrillation with RVR (CMS/HCC) 02/06/2025 1:00 PM EDT Appointment [facility] [address] [place] [phone] 02/06/2025 1:05 PM EDT - 02/06/2025 2:05 PM EDT Surgery [facility] Heart [facility] [address] [facility] [place] [phone] Andrea Lens SilvererMD [address] [place] [address] Cardioversion Care Teams Food Cashier Relationship Specialty Start Date End Date Priya Hill MD [address] [place] [address] PCP - General 12/19/24
--- OUTSIDE RECORDS SUMMARY | 2025-01-23 20:42 | XMS_ITS | Clinical Summary ---
Author Organization [facility] Address [address] [place] [address] Care Team Providers Care Milk Vendor Name Role Phone Priya Hill MD Primary Care Provider [phone] Allergies No known active allergies Medications Medication [...] Diagnosed Date Atrial fibrillation with RVR 12/24/2024 Encounters Date Type Department Care Team Description 01/10/2025 Refill [facility] [address] [place] [address] Bernice Garcia MA Atrial fibrillation with RVR (CMS/HCC) 12/22/2024 2:40 PM EDT Office Visit [facility] [address] [place] [address] Erika Fournier MD Atrial fibrillation with RVR (CMS/HCC) (Primary Dx); Acute heart failure with normal ejection fraction (CMS/HCC); Benign hypertensive heart disease with heart failure (CMS/HCC); Left ventricular hypertrophy; Hyperlipidemia, unspecified hyperlipidemia type; Morbid obesity (CMS/HCC); Sleep apnea, unspecified type from Last 3 Months Immunizations Name Administration Dates Next Due Influenza, injectable, quadrivalent 07/11/2014 Influenza, recombinant, quad rivalent, injectable, preservative free 06/16/2019 Novel [id number], nasal 08/01/2009 Family History Medical History Relation Name Comments Sleep apnea Brother No Known Problems Father No Known Problems Mother Relation Name Status Comments Brother Father Mother Social History Tobacco Use Types Packs/Day Years [...] Description 02/06/2025 11:05 AM EDT Hospital Encounter [facility] Heart [facility] [address] [place] [address] Andrea Protection Manager, [address] [place] [address] Atrial fibrillation with RVR (CMS/HCC) 02/06/2025 1:00 PM EDT Appointment [facility] [address] [place] [address] 02/06/2025 1:05 PM EDT - 02/06/2025 2:05 PM EDT Surgery [facility] [address] [place] [address] Andrea Protection ManagerMD [address] [place] [id number] Cardioversion Health Maintenance Due Date Last Done Comments CT Colonography 1978 Colonoscopy 1978 Colorectal Cancer Screening 1978 FIT-DNA 1978 FIT 1978 FOBT 1978 Sigmoidoscopy 1978 Pneumococcal Vaccine: Pediatrics (0 to 5 Years) and At-Risk Patients (6 to 64 Years) (1 of 2 - PCV) 1984 Depression Screening 1990 Hepatitis B Vaccines (1 of 3 - 19+ 3-dose series) 1997 Pap Smear 12/10/1999 Adult Tetanus 2000 Cervical Cancer Screening 2008 HPV/Cotest 2008 Mammogram 2018 COVID-19 Vaccine (1 - 2023-2 5 season) 2024 Influenza Vaccine (Season Ended) 2025 06/16/2019, 07/11/2014, 08/01/2009 Zoster Vaccines (1 of 2) 2028 HIB Vaccines Aged Out No longer eligi ble based on patient's age to complete this topic HPV Vaccines Aged Out No longer eligi ble based on patient's age to complete this topic IPV Vaccines Aged Out No longer eligi ble based on patient's age to complete this topic Meningococcal B Vaccine Aged Out No l onger eligible based on patient's age to complete this topic Meningococcal Vaccine Aged Out No molina tatum eligible based on patient's age to complete this topic Rotavirus Vaccines Aged Out No longer eligible based on patient's age to complete this topic Care Teams Milk Vendor Relationship Specialty Start Date End Date Priya Hill MD [address] [place] [place] [address] PCP - General 12/19/24
--- OUTSIDE RECORDS SUMMARY | 2025-01-23 20:42 | XMS_ITS | Clinical Summary ---
Author Organization [facility] Address [address] [place] [address] Care Team Providers Care Smooth And Burr Worker Composites Name Role Phone Priya Hill MD Primary Care Provider [phone] Medications losartan (Cozaar) 25 MG tabletIndications :Secondary hypertension TAKE 1 TABLET BY MOUTH DAILY 30 tablet 3 01/09/2025 Active apixaban (Eliquis) 5 MG tabletIndications :Coronary artery disease involving [place] coronary artery, unspecified whether angina present, unspecified whether cher-ae [place] or transplanted heart (CMS/HCC) TAKE 1 TABLET BY MOUTH 2 TIMES A DAY 60 tablet 3 01/09/2025 Active metoprolol tartrate (Lopressor) 25 MG tabletIndications :Secondary hypertension TAKE 1 TABLET BY MOUTH 2 TIMES A DAY 60 tablet 3 01/09/2025 Active furosemide (Lasix) 40 MG tabletIndications :Secondary hypertension TAKE 1 TABLET BY MOUTH DAILY 30 tablet 3 01/09/2025 Active Encounters Date Type Department Care Team Description 01/08/[address] [facility] [address] [place] [address] Lv Salguero MD Secondary hypertension; Coronary artery disease involving cher-ae heights coronary artery, unspecified whether angina present, unspecified whether cher[place]ae [place] or transplanted heart (CMS/HCC) 12/12/[address] [facility] [address] [place] [address] Lv Salguero MD from Last 3 Months Social History Tobacco Use Types Packs/Day Years Used Date Smoking Tobacco: Never Assessed Comments Unknown Sex and Gender Information Value Date Recorded Sex Assigned at Not on file Legal Sex Female 8:05 PM EDT Gender Identity Not on file Sexual Orientation Not on file Plan of Treatment Not on file Insurance BCBS Care Teams Smooth And Burr Worker [employer]posites Relationship Specialty Start Date End Date Priya Hill MD [address] [place] [address] PCP - General Family Medicine 12/18/24
--- OUTSIDE RECORDS SUMMARY | 2025-01-23 20:42 | XMS_ITS | CCD ---
Author Organization [facility] Inform ion Partnership [facility] Care Team Providers Care Therapy Assistant Name Role Phone DR PRIYA HILL Primary Care Unavailable JONI, DR PRIYA Mike Attending Unavailable SINCERE, DR JALIL Fu Consulting Unavailable DR PRIYA HILL Admitting Unavailable DR PRIYA HILL Consulting Unavailable MD Priya Hill Attending Provider Priya Hill Attending Unavailable Priya Hill Admitting Unavailable MD Priya Hill Attending Provider DENIS PATTERSON Attending Unavailable DENIS PATTERSON Admitting Unavailable JC COOPER Referring Unavailable DAVINA BOWMAN Attending Unavailable Allergies Allergy Classification Reported Allergen(s) Allergy Type Date of Onset Reaction(s) Facility (1 source) ALLERGIES NOT ON FILE; Translations: [ALLERGIES NOT ON FILE] Propensity to adverse reactions (disorder) [facility] Repository Medications Current Medications Medication Drug Class(es) Dates Sig (Normalized) Sig (Original) Norgestimate-Ethiny l Estradiol (Sprintec (28)) 0.25-35 mg-mcg tablet (3 sources) Start: 05-04-2024 take 1 tablet by mouth once daily Norgestimate-Ethin yl Estradiol (Sprintec (28)) 0.25-35 mg-mcg tablet Active 1 TAB PO Daily May 03, 2024 11:00pm Start: 05-04-2024 take 1 tablet by romi th once daily Norgestimate-Ethinyl Estradiol (Sprintec (28)) 0.25-35 mg-mcg tablet Active 1 TAB PO Daily May 04, 2024 12:00am Completed/Discontinued Medications Medication Drug Class(es) Dates Sig (Normalized) Sig (Original) FLUoxetine 20 mg oral tablet (6 sources) Serotonin Reuptake Inhibitor Start: 09-18-2024 End: 12-12-2024 take 1 capsule by mouth once daily Fluoxetine 20 mg capsule Discontinued 0 .ROUTE .COMPLEX September 18, 2024 5:07pm December 12, 2024 10:31am TAKE 1 CAPSULE BY MOUTH DAILY Start: 05-19-2024 End: 09-18-2024 take 1 capsule by mouth once daily Fluoxetine 20 mg capsule Discontinued 20 MG PO Daily June 20, 2024 10:17am September 18, 2024 5:07pm 24 hr metoprolol succinate 100 mg extended release oral tablet (6 sources) beta-Adrenergic Irish Start: 09-18-2024 End: 12-12-2024 take 1 tablet by mouth once daily Metoprolol Succinate 100 mg tablet extended release 24 hr Discontinued 0 .ROUTE .COMPLEX September 18, 2024 5:07pm December 12, 2024 10:31am TAKE 1 TABLET BY MOUTH DAILY Start: 06-20-2024 End: 09-18-2024 take 1 tablet by mouth once daily Metoprolol Succinate 100 mg tablet extended release 24 hr Discontinued 100 MG PO Daily June 20, 2024 10:17am September 18, 2024 5:07pm Start: 05-19-2024 End: 06-20-2024 take 1 tablet by mouth once daily Metoprolol Succinate (Toprol Xl) 50 mg tablet extended release 24 hr Discontinued 50 MG PO Daily May 19, 2024 12:00am June 20, 2024 10:19am Problems Problem Classification Problem Date Documented Da te Episodic/Chronic Anxiety disorders (3 sources) Anxiety; Translations: [Anxiety disorder, unspecified] 05-19-2024 Chronic Cardiac dysrhythmias (4 sources) Unspecified atrial fibrillation; Translations: [Paroxysmal atrial fibrillation] Onset: 12-22-2024 Chronic Cardiac dysrhythmias (2 sources) Cardiac dysrhythmias Onset: 12-12-2024 Essential hypertension (3 sources) Essential hypertension; Translations: [Essential (primary) hypertension] 05-19-2024 Chronic Hypertension with complications and secondary hypertension (2 sources) Hypertensive heart disease with heart failure; Translations: [Hypertensive heart disease with heart failure] Onset: 12-22-2024 Chronic Other lower respiratory disease (1 source) Dyspnea; Translations: [Dyspnea, unspecified] 12-12-2024 Episodic Other lower respiratory disease (1 source) Dyspnea, unspecified; Translations: [Other respiratory abnormalities] 12-12-2024 Episodic Other screening for suspected conditions (not mental disorders or infectious disease) (11 sources) Encounter for screening mammogram for malignant neoplasm of breast; Translations: [Patient encounter status] Onset: 04-06-2021 04-24-2024 Episodic Results Test Name Value Interpretation Reference Range Facility 36on 01-10-2025 36 Left message on Carola's phone requesting refill of Eliquis Normal [facility] Office Visiton 12-22-2024 Follow-up visit [id number] JimJacob M 1980 F Date Provider Department Center 12/22/2024 [id number] BOWMAN CARD [facility] Family History Problem Relation Age of Onset No Known Problems Mother No Known Problems Father Sleep apnea Brother Family Status - Relation Status Age at Mother Father Brother Level of Service:19239 [place] OFFICE/OUTPATIENT NEW MODERATE MDM 45 MINUTES Reason for Visit and Comments: Atrial Fibrillation [80] - Recently diagnosed with afib and CHF. Sleep study has been ordered by PCP. Denies bleeding on Eliquis. Denies palpitations. Congestive Heart Failure [127] - Had echo 2 weeks rosa while inpatient at [facility]. Edema [[id number]] Dizziness [[id number]] - Says she gets dizzy and blacks out when she lies down. Says room is spinning . Normal [facility] Chlamydia trachomatis rRNA [ Presence] in Cervix by ANA with probe detectionOrdered By: Priya Hill on 04-24-2024 C. trachomatis rRNA ANA+probe Ql (Cvx) Negative Negative [facility] Cholesterol in LDL Calc [Mas s/Vol]on 04-24-2024 Cholesterol in LDL [Mass/Vol] 118.0 mg/dL [facility] Comment on above: <100 mg/dl [id number] 0-129 mg/dl NEAR OR ABOVE [id number] mg/dl BORDERLINE [id number] mg/dl HIGH>190 mg/dl VERY HIGH Cholesterol in VLDL Calc [Ma ss/Vol]on 04-24-2024 Cholesterol in VLDL [Mass/Vol] 12.0 mg/dL [facility] Estimated glomerular filtrat ion rate (GFR) non- Americanon 04-24-2024 GFR/1.73 sq M.predicted among non-blacks MDRD (S/P/Bld) [Vol rate/Area] mL/min/{1.73_m2} >=60 [facility] Laboratory - Chemistry and C hemistry - challengeon 04-24-2024 Calcium [Mass/Vol] 9.1 mg/dL 8.5-10.1 [facility] Chloride [Moles/Vol] 102 mmol/L 98-107 [facility] Cholesterol [Mass/Vol] 206 mg/dL High <=200 [facility] Cholesterol in HDL [Mass/Vol] 76 mg/dL High 40-60 [facility] Comment on above: > or =60 mg/dl - LOW CARDIOVASCULAR RISK<40 mg/dl - HIGH CARDIOVASCULAR RISK CO2 [Moles/Vol] 34.1 mmol/L High 21.0-32.0 [facility] Creatinine [Mass/Vol] 0.70 mg/dL 0.55-1.02 [facility] GFR/1.73 sq M.predicted MDRD (S/P/Bld) [Vol rate/Area] mL/min/{1.73_m2} >=60 [facility] Glucose [Mass/Vol] 96 mg/dL 74-106 [facility] Potassium [Moles/Vol] 3.7 mmol/L 3.5-5.1 [facility] Sodium [Moles/Vol] 141 mmol/L 136-145 [facility] Triglyceride [Mass/Vol] 60 mg/dL <=150 [facility] Urea nitrogen [Mass/Vol] 13.0 mg/dL 7.0-18.0 [facility] Urea nitrogen/Creatinine [Mass ratio] 18.6 mg/mg [facility] Neisseria gonorrhoeae rRNA [ Presence] in Cervix by ANA with probe detectionOrdered By: Priya Hill on 04-24-2024 N. gonorrhoeae rRNA ANA+probe Ql (Cvx) Negative Negative [facility] Comment on above: Performed at: - L [address] [id number] Director: Valarie Burris MD, Phone: [phone] at: =G - [facility] [address] [place] [id number] Director: Valarie Burris MD, Phone: [phone] No Panel InformationOrdered By: Priya Hill on 04-24-2024 IG Pap w/Ct-Ng & HPV (Off-Site) Note . [facility] Comment on above: TESTS RESULT FLAG UN ITS REF RANGE LAB Clinician Provided Cytology Information No. of containers..01 ThinPrep VialDIAGNOSIS: 01 NEGATIVE FOR INTRAEPITHELIAL LESION OR MALIGNANCY.Specimen adequacy: 01 Satisfactory for evaluation. Endocervical and/or squamous metaplastic cells (endocervical component) are present.Performed by: Sarah Jean Baptiste, Senior Manager Creative Services ([facility]). 01Note: Note 01 The Pap smear is a screening test designed to aid in the detection of premalignant and malignant conditions of the uterine cervix. It is not a diagnostic procedure and should not be used as the sole means of detecting cervical cancer. Both false-positive and false-negative reports do occur.Test Methodology: Note 01 This liquid based ThinPrep(R) pap test was screened with the use of an image guided system.. 01 The HPV DNA reflex criteria were not met with this specimen result therefore, no HPV testing was performed. ------- FLAG LEGEND: L-Low Normal,H-High Normal,LL-Alert Low,HH-Alert High <-Panic Low,>-Panic High,A-Abnormal,AA-Critical Abnormal -----Performed at:01 WB [facility] [place] [address] [facility] [address] Valarie Burris MD, Pap IG, CtNg, rfx HPV Aptima on 04-24-2024 PAP Chlamydia ANA Negative Normal Negative [facility] Comment on above: Performed By: #### P AP #### [facility] , PAP Gonococcus Negative Normal Negative [facility] Comment on above: Result Comment: Perf ormed at: WB - [facility] [address] [place], [place] [id number] [employer] System Operator: Valarie Burris MD, Phone: [phone] Performed at: =G - [facility] [place] [address] [place], [place] [id number] [employer] System Operator: Valarie Burris MD, Phone: [phone] PERFORMED BY: [address] [place] [address] PATHOLOGIST PARKING ASSISTANT BHAKTI MORALES M.D. Performed By: #### P AP #### [facility] , Pap IG Note Normal . [facility] Comment on above: Result Comment: TEST S RESULT FLAG UNITS REF RANGE LAB Clinician Provided Cytology Information No. of containers..01 ThinPrep Vial DIAGNOSIS: 01 NEGATIVE FOR INTRAEPITHELIAL LESION OR MALIGNANCY. Specimen adequacy: 01 Satisfactory for evaluation. Endocervical and/or squamous metaplastic cells (endocervical component) are present. Performed by: 01 Sarah Jean Baptiste, Senior Manager Creative Services ([facility]) . 01 Note: Note 01 The Pap smear is a screening test designed to aid in the detection of premalignant and malignant conditions of the uterine cervix. It is not a diagnostic procedure and should not be used as the sole means of detecting cervical cancer. Both false-positive and false-negative reports do occur. Test Methodology: Note 01 This liquid based ThinPrep(R) pap test was screened with the use of an image guided system. . 01 The HPV DNA reflex criteria were not met with this specimen result therefore, no HPV testing was performed. FLAG LEGEND: L-Low Normal,H-High Normal,LL-Alert Low,HH-Alert High <-Panic Low,>-Panic High,A-Abnormal,AA-Critical Abnormal Performed at: [address] [facility] [address] [address] Valarie Burris MD, Performed By: #### P AP [id number] #### [facility] , Serum or plasma anion gap de terminationon 04-24-2024 Anion gap [Moles/Vol] 8.6 mmol/L [facility] Serum or plasma total choles terol/high density lipoprotein (HDL) cholesterol mass lucy 04-24-2024 Cholesterol.total/Chol esterol in HDL [Mass ratio] 2.7 {ratio} [facility] Comment on above: 3.3 - 4.4 LOW RISK4. 4 - 7.1 AVERAGE RISK7.1 - 11.0 MODERATE RISK>11.0 HIGH RISK CBC AUTO DIFFon 03-26-2021 BASO # 0.1 103/ul Normal 0.0-0.1 [facility] Comment on above: Performed By: #### C BC #### [facility] [address] [place] [address] Janice Calix Basophils/100 WBC (Bld) 1.6 % Normal 0.2-2.0 [facility] Comment on above: Performed By: #### C BC #### [facility] [address] [place], [place] [address] Janice Fifi EO # 0.3 103/ul Normal 0.0-0.7 [facility] Comment on above: Performed By: #### C BC #### [facility] [address] [place] [address] Janice Fifi Eosinophils/100 WBC (Bld) 4.8 % Normal 0.9-7.0 [facility] Comment on above: Performed By: #### C BC #### [facility] [address] [place] [address] Janice Fifi Erythrocyte distribution width (RBC) [Ratio] 14.4 % Normal 11.0-15.0 [facility] Comment on above: Performed By: #### C BC #### [facility] [address] [place] [address] Janice Fifi Hematocrit (Bld) [Volume fraction] 42.2 % Normal 36.0-48.0 [facility] Comment on above: Performed By: #### C BC #### [facility] [address] [place] [address] Janice Ffii Hemoglobin (Bld) [Mass/Vol] 13.5 g/dL Normal 12.0-16.0 [facility] Comment on above: Performed By: #### C BC #### [facility] [address] [place] [address] Janice Fifi IG # 0.02 10e3/ul Normal 0.00-0.03 [facility] Comment on above: Performed By: #### C BC #### [facility] [address] [place] [address] Janice Fifi IG % 0.3 % Normal 0.0-0.5 [facility] Comment on above: Performed By: #### C BC #### [facility] [address] [place] [address] Janice Fifi LYMPH # 2.0 103/ul Normal 1.2-3.8 [facility] Comment on above: Performed By: #### C BC #### [facility] [address] [place] [address] Janice Fifi Lymphocytes/100 WBC (Bld) 29.7 % Normal 20.5-60.0 [facility] Comment on above: Performed By: #### C BC #### [facility] [address] [place], [place] [address] Janice Fifi MANUAL DIFF REQ NO Normal [facility] Comment on above: Performed By: #### C BC #### [facility] [address] [place], [place] [address] Janicelegin Calix MCH (RBC) [Entitic mass] 27.2 pg Normal 26.7-34.0 [facility] Comment on above: Performed By: #### C BC #### [facility] [address] [place] [address] Janiceelgin Calix MCHC (RBC) [Mass/Vol] 32.0 g/dL Normal 29.9-35.2 [facility] Comment on above: Performed By: #### C BC #### [facility] [address] [place], [place] [address] Janice Fifi MCV (RBC) [Entitic vol] 84.9 fL Normal 81.0-99.0 [facility] Comment on above: Performed By: #### C BC #### [facility] [address] [place], [place] [address] Janice Fifi MONO # 0.5 103/ul Normal 0.3-0.8 [facility] Comment on above: Performed By: #### C BC #### [facility] [address] [place], [place] [address] Janice Fifi Monocytes/100 WBC (Bld) 7.4 % Normal 1.7-12.0 [facility] Comment on above: Performed By: #### C BC #### [facility] [address] [place], [place] [address] Janice Fifi NEUT # 3.9 103/ul Normal 1.4-6.5 [facility] Comment on above: Performed By: #### C BC #### [facility] [address] [place], [place] [address] Janice Fifi Neutrophils/100 WBC (Bld) 56.2 % Normal 43.0-75.0 [facility] Comment on above: Performed By: #### C BC #### [facility] [address] [place], [place] [address] Janice Fifi Platelet mean volume (Bld) [Entitic vol] 8.7 fL Critically low 9.5-13.5 [facility] Comment on above: Performed By: #### C BC #### [facility] [address] [place], [place] [address] Janice Fifi PLT 365 103/ul Normal 150-450 [facility] Comment on above: Performed By: #### C BC #### [facility] [address] [place] [id number] Janice Fifi RBC 4.97 106/ul Normal 4.20-5.40 [facility] Comment on above: Performed By: #### C BC #### [facility] [address] [place], [place] [address] Janice Fifi WBC 6.9 103/ul Normal 4.0-11.0 [facility] Comment on above: Performed By: #### C BC #### [facility] [address] [place], [place] [address] Janice Fifi LIPID PROFILEon 03-26-2021 CHOL-HDL RATIO NORM SEE BELOW Normal [facility] Comment on above: Result Comment: 3.3 - 4.4 LOW RISK 4.4 - 7.1 AVERAGE RISK 7.1 - 11.0 MODERATE RISK >11.0 HIGH RISK Performed By: #### L IPID, CMP #### [facility] [address] [place], [place] [address] Janice Fifi Cholesterol [Mass/Vol] 243 mg/dL Critically high <=200 [facility] Comment on above: Performed By: #### L IPID, CMP #### [facility] [address] [place] [address] Janice Fifi Cholesterol in HDL [Mass/Vol] 91 mg/dL Normal [facility] Comment on above: Performed By: #### L IPID, CMP #### [facility] [address] [place] [address] Janice Fifi Cholesterol in LDL [Mass/Vol] 139.2 mg/dL Normal [facility] Comment on above: Performed By: #### L IPID, CMP #### [facility] [address] [place], [place] [address] Janice Fifi Cholesterol.total/Chol esterol in HDL [Mass ratio] 2.7 {ratio} Normal [facility] Comment on above: Performed By: #### L IPID, CMP #### [facility] [address] [place], [place] [address] Janice Fifi HDL NORMAL > or = 60 mg/dl - LOW CARDIOVASCULAR RISK <40 mg/dl - HIGH CARDIOVASCULAR RISK Normal [facility] Comment on above: Performed By: #### L IPID, CMP #### [facility] [address] [place], [place] [address] Janice Fifi LDL CALC NORMAL SEE BELOW Normal [facility] Comment on above: Result Comment: <100 mg/dl OPTIMAL 100 - 129 mg/dl NEAR OR ABOVE OPTIMAL 130 - 159 mg/dl BORDERLINE HIGH 160 - 189 mg/dl HIGH >190 mg/dl VERY HIGH Performed By: #### L IPID, CMP #### [facility] [address] [place] [id number] Janice Fifi Triglyceride [Mass/Vol] 64 mg/dL Normal <=150 [facility] Comment on above: Performed By: #### L IPID, CMP #### [facility] [address] [place] [id number] Janice Fifi VLDL CALC 12.8 mg/dL Normal [facility] Comment on above: Performed By: #### L IPID, CMP #### [facility] [address] [place], [place] [address] Janice Fifi MG MAMM SCREEN 3D STEFAN CADon 03-26-2021 MG MAMM SCREEN 3D STEFAN CAD Patient: JACOB FERNANDEZ Exam Date: 03/26/2021 : 1980 Gender:F Ordering : DR PRIYA HILL M.D. Admission #: [id number] Family : Order #: [id number] CLICK HERE TO VIEW EXAM RADIOLOGY REPORT PROCEDURE: MAMMOGRAM SCREENING 3D BILATERAL CAD COMPARISON: None. INDICATIONS: Screening mammography Calculator Name NCI Breast Cancer Risk Assessment Tool 5 Year Breast Cancer Risk 0.80% Lifetime Breast Cancer Risk 11.90% Personal Breast Cancer No Personal Ovarian Cancer No Treatments None Family Cancers Father with esophagus cancer at age 60. LOCATION: [facility] BREAST COMPOSITION: Scattered areas fibroglandular density. FINDINGS: DIAGNOSTIC CATEGORY 1--NEGATIVE NO CHANGE FROM COMPARISON ASSESSMENT. Scattered benign-appearing calcifications are present. Scattered benign-appearing lymph nodes are present. RIGHT BREAST: No significant suspicious finding. LEFT BREAST: No significant suspicious finding. RECOMMENDATIONS: ROUTINE MAMMOGRAM AND CLINICAL EVALUATION IN 12 MONTHS. PLEASE NOTE: A NORMAL MAMMOGRAM DOES NOT EXCLUDE THE POSSIBILITY OF BREAST CANCER. A CLINICALLY SUSPICIOUS PALPABLE LUMP SHOULD BE BIOPSIED. Dictated by: Jalil Arreguin MD on 03/26/2021 at 10:20 Approved by: Jalil Arreguin MD on 03/26/2021 at 10:23 Normal [facility] PROF 14(COMP METB)on 021 Albumin [Mass/Vol] 3.8 g/dL Normal 3.5-5.0 [facility] Comment on above: Performed By: #### L DARLEEN, CMP #### [facility] [address] [place], [place] [address] Janice Fifi Albumin/Globulin [Mass ratio] 1.0 {ratio} Normal [facility] Comment on above: Performed By: #### L DARLEEN CMP #### [facility] [address] [place], [place] [address] Janice Fifi ALP [Catalytic activity/Vol] 113 U/L Normal 38-126 [facility] Comment on above: Performed By: #### L DARLEEN, CMP #### [facility] [address] [place], [place] [address] Janice Fifi ALT [Catalytic activity/Vol] 29 U/L Normal 9-52 [facility] Comment on above: Performed By: #### L DARLEEN, CMP #### [facility] [address] [place], [place] [address] Janice Fifi Anion gap [Moles/Vol] 10.1 mmol/L Normal [facility] Comment on above: Performed By: #### L IPID, CMP #### [facility] [address] [place], [place] [address] Janice Fifi AST [Catalytic activity/Vol] 17 U/L Normal 14-36 [facility] Comment on above: Performed By: #### L IPID, CMP #### [facility] [address] [place] [address] Janice Fifi Bilirubin [Mass/Vol] 0.4 mg/dL Normal 0.2-1.3 [facility] Comment on above: Performed By: #### L IPID, CMP #### [facility] [address] [place] [address] Janice Fifi Calcium [Mass/Vol] 8.8 mg/dL Normal 8.4-10.2 [facility] Comment on above: Performed By: #### L IPID, CMP #### [facility] [address] [place] [address] Janice Fifi Chloride [Moles/Vol] 101 mmol/L Normal 98-107 [facility] Comment on above: Performed By: #### L IPID, CMP #### [facility] [address] [place] [address] Janice Fifi CO2 [Moles/Vol] 32.6 mmol/L Critically high 22.0-30.0 [facility] Comment on above: Performed By: #### L IPID, CMP #### [facility] [address] [place] [address] Janice Fifi Creatinine [Mass/Vol] 0.68 mg/dL Normal 0.52-1.04 [facility] Comment on above: Performed By: #### L IPID, CMP #### [facility] [address] [place], [place] [address] Janice Fifi EGFR-AF LATVIAN >60 Normal >=60 [facility] Comment on above: Performed By: #### L IPID, CMP #### [facility] [address] [place], [place] [address] Janice Fifi EGFR-NON AF LATVIAN >60 Normal >=60 [facility] Comment on above: Performed By: #### L IPID, CMP #### [facility] [address] [place], [place] [address] Janice Fifi Globulin (S) [Mass/Vol] 3.8 g/dL Normal [facility] Comment on above: Performed By: #### L IPID, CMP #### [facility] [address] [place] [id number] Janice Fifi Glucose [Mass/Vol] 95 mg/dL Normal 74-106 [facility] Comment on above: Performed By: #### L IPID, CMP #### [facility] [address] [place] [id number] Janice Fifi Potassium [Moles/Vol] 3.7 mmol/L Normal 3.4-5.0 [facility] Comment on above: Performed By: #### L IPID, CMP #### [facility] [address] [place], [place] [address] Janice Fifi Protein [Mass/Vol] 7.6 g/dL Normal 6.1-8.2 [facility] Comment on above: Performed By: #### L IPID, CMP #### [facility] [address] [place] [address] Janice Fifi Sodium [Moles/Vol] 140 mmol/L Normal 137-145 [facility] Comment on above: Performed By: #### L IPID, CMP #### [facility] [address] [place], [place] [address] Janice Fifi Urea nitrogen [Mass/Vol] 14.0 mg/dL Normal 7.0-17.0 [facility] Comment on above: Performed By: #### L IPID, CMP #### [facility] [address] [place], [place] [address] Janice Fifi Urea nitrogen/Creatinine [Mass ratio] 20.6 mg/mg Normal [facility] Comment on above: Performed By: #### L IPID, CMP #### [facility] [address] [place], [place] [id number] Janice Fifi Vital Signs Date Time Vital Sign Value Performing Clinician Lien narayanan 12-12-2024 10:040 Body height 160.[address] [facility] 12-12-2024 10:040 Body mass index (BMI) [Ratio] 67.1 kg/m2 [facility] 12-12-2024 10:25-0400 Body weight 171.[address] [facility] 12-12-2024 10:25-0400 Diastolic blood pressure 124 mm[Hg] [facility] 12-12-2024 10:25-0400 Heart rate 139 /min [facility] 12-12-2024 10:25-0400 SaO2% (BldA) [Mass fraction] 92 % [facility] 12-12-2024 10:25-0400 Systolic blood pressure 173 mm[Hg] [facility] 06-20-2024 09:00-0500 Body height 160.02 cm MD Priya Hill Work Phone: [facility] 06-20-2024 09:00-0500 Body mass index (BMI) [Ratio] 62.3 kg/m2 MD Priya Hill Work Phone: [facility] 06-20-2024 09:00-0500 Body weight 159.66 kg MD Priya Hill Work Phone: [facility] 06-20-2024 09:00-0500 Diastolic blood pressure 102 mm[Hg] MD Priya Hill Work Phone: [facility] 06-20-2024 09:00-0500 Heart rate 77 /min MD Priya Hill Work Phone: [facility] 06-20-2024 09:00-0500 Systolic blood pressure 180 mm[Hg] MD Priya Hill Work Phone: [facility] 05-19-2024 09:39-0400 Diastolic blood pressure 120 mm[Hg] MD Priya Hill Work Phone: [facility] 05-19-2024 09:39-0400 Systolic blood pressure 230 mm[Hg] MD Priya Hill Work Phone: [facility] 05-19-2024 09:31-0400 Body height 160.02 cm MD Priya Hill Work Phone: [facility] 05-19-2024 09:31-0400 Body mass index (BMI) [Ratio] 62.4 kg/m2 MD Priya Hill Work Phone: [facility] 05-19-2024 09:31-0400 Body weight 159.77 kg MD Priya Hill Work Phone: [facility] 05-19-2024 09:31-0400 Heart rate 107 /min MD Priya Hill Work Phone: [facility] 05-19-2024 09:31-0400 Respiratory rate 18 /min MD Priya Hill Work Phone: [facility] 05-19-2024 09:31-0400 SaO2% (BldA) [Mass fraction] 96 % MD Priya Hill Work Phone: [facility] 04-24-2024 09:35-0400 Body height 160.[address] [facility] 04-24-2024 09:35-0400 Body mass index (BMI) [Ratio] 61.2 kg/m2 [facility] 04-24-2024 09:35-0400 Body weight 156.[address] [facility] 04-24-2024 09:35-0400 Diastolic blood pressure 90 mm[Hg] [facility] 04-24-2024 09:35-0400 Heart rate 97 /min [facility] 04-24-2024 09:35-0400 Systolic blood pressure 155 mm[Hg] [facility] Encounters Encounter Date Encounter Type Care Provider Facility Start: 12-22-2024 End: 12-22-2024 ambulatory [facility] Start: 12-12-2024 Evaluation and management of inpatient [facility] Start: 12-12-2024 End: 12-12-2024 ambulatory [facility] Work Phone: Start: 12-12-2024 End: 12-12-2024 Patient encounter procedure [facility] Work Phone: Start: 06-20-2024 End: 06-20-2024 ambulatory MD Priya Hill Work Phone: [facility] Work Phone: Start: 06-20-2024 End: 06-20-2024 Patient encounter procedure MD Priya Hill Work Phone: [facility] Work Phone: Start: 05-19-2024 End: 05-19-2024 ambulatory MD Priya Hill Work Phone: [facility] Work Phone: Start: 05-19-2024 End: 05-19-2024 Patient encounter procedure MD Priya Hill Work Phone: [facility] Work Phone: Start: 04-24-2024 End: 04-24-2024 Departed Referred MD Priya Hill Work Phone: [facility] Work Phone: Start: 04-24-2024 Patient encounter status [facility] Start: 04-24-2024 End: 04-24-2024 ambulatory Priya Hill [facility] Work Phone: Start: 04-24-2024 End: 04-24-2024 Encounter for general adult medical examination without abnormal findings [facility] Start: 04-24-2024 End: 04-24-2024 Patient encounter procedure [facility] Work Phone: Start: 04-06-2021 Encounter for genera l adult medical examination without abnormal findings DR PRIYA HILL [facility] Start: 03-26-2021 End: 03-27-[address] PRIYA HILL Facility:[facility] Start: 03-26-2021 End: 03-27-2021 Encounter for general adult medical examination without abnormal findings DR PRIYA HILL Facility:[facility] Plan of Treatment Date Care Activity Detail Author Start: 04-25-2024 [facility] Chlamydia trachomati s rRNA [Presence] in Cervix by ANA with probe detection [facility] Human papilloma viru s 16+18+31+33+35+39+45+51+52+56+58 +59+66+68 DNA [Presence] in Cervix by Probe with signal amplification [facility] Human papilloma viru s 16+18+31+33+35+39+45+51+52+56+58 +59+68 DNA [Presence] in Cervix by Probe with signal amplification [facility] MG Breast - bilateral Screening [facility] Neisseria gonorrhoea e rRNA [Presence] in Cervix by ANA with probe detection [facility] Immunizations Immunization Date Immunization Notes Care Provider Fa cility 06-15-2013 tetanus and diphther ia toxoids, adsorbed, preservative free, for adult use (5 Lf of tetanus toxoid and 2 Lf of diphtheria toxoid) [facility] Payers Date Payer Category Payer Self-pay 2023 Unknown [id number] 1980 Unknown [id number] 1961 Unknown [id number] Unknown [id number] Social History Date Type Detail Facility Start: 04-24-2024 End: 04-24-2024 Tobacco smoking status NHIS Never smoked tobacco (finding) [facility] Start: 1980 Sex Assigned At Female [facility] Start: 12-12-2024 Sex Female (finding) [facility] NEGATED: Highlighted row [facility] Progress note 12-22-2024 Note Date & Type Note Facility 12-22-2024 Note [facility] Note Reason for cardiology consult: Newly diagnosed atrial fibrillation Chief Complaint: Dyspnea on exertion HPI: Jacob Fernandez is a 44 y.o. female without prior cardiac history. She denies history of hypertension, hyperlipidemia or diabetes mellitus. The only medication she takes is control pills. She reports significant dyspnea on exertion for about 1 week which started gradually she denies any palpitations. She denies any dizziness. She denies any chest discomfort. She denies orthopnea or paroxysmal nocturnal dyspnea. She admits legs edema. She admits snoring and being sleepy during the daytime and PCP already ordered sleep study Smoker. She denies alcohol or illicit drugs. She was evaluated in the hospital and she was found to be atrial fibrillation and CHF, also she was noted to have hypertension, she was started on losartan, metoprolol, Lasix, and Eliquis. She still has shortness of breath Cardiology ROS: GENERAL: Denies fever, chills, night sweats, weight loss. HEENT: Denies changes in vision, photophobia, changes in hearing, epistaxis, oral bleeding. CARDIOVASCULAR: Denies chest pain, orthopnea/PND, palpitations, lightheadedness/dizziness. She reports dyspnea on exertion and leg edema RESPIRATORY: Denies SOB, coughing, wheezing GI: Denies abdominal pain, nausea/vomiting, heartburn, melena/hematochezia. RENAL: Denies dysuria, hematuria, flank pain. MSK: Denies muscle weakness/pain, arthralgias/joint pain. NEUROLOGIC: Denies LOC, weakness, numbness, headaches. SKIN: Denies abnormal rashes or bleeding. PSYCH: Denies significant anxiety, depression, sleep disturbances. Past Medical History She has a past medical history of Abnormal ECG, Arrhythmia, Atrial fibrillation ([facility]), and CHF (congestive heart failure) ([facility]). Surgical History She has a past surgical history that includes Tympanostomy tube placement; Tonsillectomy; Cholecystectomy; Appendectomy; and Foot surgery. Social History She reports that she has never smoked. She has never used smokeless tobacco. She reports that she does not currently use alcohol. No history on file for drug use. Family History Family History Problem Relation Name Age of Onset No Known Problems Mother No Known Problems Father Sleep apnea Brother Allergies Patient has no known allergies. Medications Current Outpatient Medications: apixaban (Eliquis) 5 mg tablet, Take 5 mg by mouth two times daily., Disp: , Rfl: furosemide (Lasix) 40 mg tablet, Take 40 mg by mouth in the morning., Disp: , Rfl: losartan (Cozaar) 25 mg tablet, Take 25 mg by mouth in the morning., Disp: , Rfl: metoprolol tartrate (Lopressor) 25 mg tablet, Take 25 mg by mouth two times daily., Disp: , Rfl: Sprintec, 28, 0.25-35 mg-mcg tablet, Take 1 tablet by mouth in the morning., Disp: , Rfl: furosemide (Lasix) 80 mg tablet, Take 1 tablet (80 mg) by mouth in the morning., Disp: 90 tablet, Rfl: 3 metoprolol tartrate (Lopressor) 50 mg tablet, Take 1 tablet (50 mg) by mouth two times daily., Disp: 180 tablet, Rfl: 3 spironolactone (Aldactone) 50 mg tablet, Take 1 tablet (50 mg) by mouth in the morning., Disp: 90 tablet, Rfl: 3 Last Recorded Vitals Visit Vitals BP 168/90 (BP Location: Left wrist, Patient Position: Sitting) Pulse 85 Ht 1.6 m (5' 3 ) Wt (!) 164 kg (362 lb) SpO2 94% BMI 64.13 kg/m??? Smoking Status Never BSA 2.7 m??? Physical Examination: GENERAL: alert and oriented x3, well developed, in no acute distress. HEAD: atraumatic, normocephalic. EYES: ANSELMO, EOMI. NECK: trachea midline, no JVD present, no carotid bruits present. CARDIAC: Tachycardic, irregular irregularity. No murmur, rubs, or gallops. RESPIRATORY: CTAB, no increased effort of breathing, no rales, rhonchi, or wheezing. ABDOMEN: soft, nontender, nondistended. EXTREMITIES: Mild edema bilaterally. No rash/skin discoloration present. NEURO: strength/sensation equal and symmetric in bilateral upper and lower extremities. PSYCH: appropriate mood, affect, and judgement. Labs: 12/13/2024 White blood count 8.2, hemoglobin 12.7, hematocrit 39.7 platelets 311 Sodium 143, potassium 3.7, BUN 13, creatinine 0.84, GFR above 60, calcium 8.8, glucose 95 AST 38, ALT T104, alk phos 116, total protein 6.4, albumin 2.9 proBNP 4405, normal less than 450 next High-sensitivity troponin negative TSH 3.295 Influenza A, influenza B and COVID are negative 04/24/2024 Sodium 141, potassium 3.7, BUN 13, creatinine 0.7 GFR above 60, glucose 96, calcium 9.1 Triglycerides 60, cholesterol 206, LDL 118, HDL 76 Last Images: EKG 12/19/2024 showed atrial fibrillation with rapid ventricular rate, left bundle branch block EKG 12/12/2024 showed atrial fibrillation with rapid ventricular rate and left bundle branch block Echo 12/13/2024 Assessment and Plan: Persistent atrial fibrillation with RVR (CMS/HCC) associated wit (more content not included)... [facility] Evaluation note Note Date & Type Note Facility Evaluation note Diagnosis Onset Date Screening mammogram for breast cancer acute Wellness examination acute [facility] Work Phone: Evaluation note Note Date & Type Note Facility Evaluation note Diagnosis Onset Date Screening mammogram for breast cancer acute Wellness examination acute Anxiety acute Essential (primary) hypertension acute [facility] Work Phone: Evaluation note Note Date & Type Note Facility Evaluation note Diagnosis Onset Date Resolution Dyspnea and respiratory abnormalities acute December 12, 2024 10:19am [facility] Work Phone: Summary Purpose Family History No Family History Records FoundNo Family History Records FoundNo Family History Records Found Advance Directives No Advanced Directives Records Found Advance Directive Response Recorded Date/ Time Advance Directives No April 9:14am Advance Directive Response Recorded Date/ Time Advance Directives No April 8:14am Chief Complaint and Reason for Visit Chief Complaint wellness/pap Reason for Visit Screening mammogram for breast cancer Wellness examination Chief Complaint wellness/pap Encounter for well woman exam Reason for Visit Screening mammogram for breast cancer Wellness examination Chief Complaint wellness/pap Z01.419 Anxiety Reason for Visit Screening mammogram for breast cancer Wellness examination Chief Complaint wellness/pap Z01.419 Anxiety 1 month f/u Reason for Visit Screening mammogram for breast cancer Wellness examination Anxiety Essential (primary) hypertension Chief Complaint Admit Date Sinus Infection December 12, 2024 10: 19am Reason for Visit Admit Date Dyspnea and respiratory abnormalities Ap 2024 10:19am Additional Source Comments INFORMATION SOURCE (unrecogn ized section and content) DATE CREATED AUTHOR 04/06/2021 [facility] DATE CREATED AUTHOR AUTHOR'S ORGANIZ ATION 05/04/2024 [facility] DATE CREATED AUTHOR AUTHOR'S ORGANIZ ATION 01/13/2025 [facility] Care Teams (unrecognized sec tion and content) Team Status: Active Member Role Status Dates Priya Hill MD Primary Care Provider Active Team Status: Inactive Member Role Status Dates Priya Hill MD Primary Care Provide r, Attending Provider Active Start: April 24, 2024 End: April 24, 2024 Team Status: Inactive Member Role Status Dates Priya Hill MD Attending Provider Active St art: April 24, 2024 End: April 24, 2024 Team Status: Inactive Member Role Status Dates Priya Hill MD Primary Care Provide r, Attending Provider Active Start: May 19, 2024 End: May 19, 2024 Team Status: Inactive Member Role Status Dates Priya Hill MD Primary Care Provide r, Attending Provider Active Start: June 20, 2024 End: June 20, 2024 Team Status: Inactive Member Role Status Dates Priya Hill MD Primary Care Provide r, Attending Provider Active Start: December 12, 2024 End: December 12, 2024 Goals (unrecognized section and content) Goals may be documented in a n alternate sectionGoals may be documented in an alternate sectionGoals may be documented in an alternate sectionGoals may be documented in an alternate sectionGoals may be documented in an alternate section FOR RECORDS PERTAINING TO PATIENTS WHO ARE OR HAVE BEEN ENROLLED IN A CHEMICAL DEPENDENCY/SUBSTANCEABUSE PROGRAM, SOME INFORMATION MAY BE OMITTED. This clinical summary was aggregated from multiple sources. Caution should be exercised in using it in the provision of clinical care. This summary normalizes information from multiple sources, and as a consequence, information in this document may materially change the coding, format and clinical context of patient data. In addition, data may be omitted in some cases. CLINICAL DECISIONS SHOULD BE BASED ON THE PRIMARY CLINICAL RECORDS. [facility] provides no warranty or guarantee of the accuracy or completeness of information in this document.
--- OUTSIDE RECORDS SUMMARY | 2025-01-23 20:42 | XMS_ITS | Encounter Summary ---
Author Organization [facility] Address [address] [place] [address] Care Team Providers Care Die Trouble Shooter Name Role Phone Priya Hill MD Primary Care Provider Reason for Visit * Reason Onset Date Comments Med Refill 01/10/2025 Encounter Details Date Type Department Care Team (Late st Contact Info) Description 01/10/2025 Refill [facility] [address] [place] [address] Bernice Garcia MA Atrial fibrillation with RVR (CMS/HCC) Social History Tobacco Use Types Packs/Day Years Used Date Smoking Tobacco: Never Smokeless Tobacco: Never Alcohol Use Standard Drinks/Week Comments Not Currently 0 (1 standard drink = 0.6 oz pur e alcohol) Sex and Gender Information Value Date Recorded Sex Assigned at Female 12/18/2024 5:43 PM EDT Gender Identity Female 12/18/2024 5:43 PM EDT Sexual Orientation Heterosexual or Straight 12/2024 5:43 PM EDT documented as of this encounter Miscellaneous Notes * Telephone Encounter - Bernice Garcia MA - 01/10/2025 10:32 AM EDT Left message on Carola's phone requesting refill of Eliquis documented in this encounter Plan of Treatment Upcoming Encounters Date Type Department Care Team (Latest Contact Info) Description 02/06/2025 11:05 AM EDT Hospital Encounter [facility] [address] [place] [address] Andrea Risk Investigator, [address] [place] [address] Atrial fibrillation with RVR (CMS/HCC) 02/06/2025 1:00 PM EDT Appointment [facility] [address] [place] [address] 02/06/2025 1:05 PM EDT - 02/06/2025 2:05 PM EDT Surgery Pending sale to [facility] [address] [place] [address] Andrea Risk Investigator, [address] [place] [address] Cardioversion documented as of this encounter Visit Diagnoses Diagnosis Atrial fibrillation with RVR (CMS/HCC)- Primary Atrial fibrillation with RVR (CMS/HCC) Atrial fibrillation with RVR (CMS/HCC) documented in this encounter Care Teams Die Trouble Shooter Relationship Specialty Start Date End Date Priya Hill MD [address] [place] [address] PCP - General 12/19/24 documented as of this encounter
--- OUTSIDE RECORDS SUMMARY | 2025-01-23 20:42 | XMS_ITS | Encounter Summary ---
Author Organization [facility] Address [address] [place] [address] Care Team Providers Care Wireless Construction Manager Name Role Phone Priya Hill MD Primary Care Provider [phone] Reason for Visit * Reason Comments Med Refill Encounter Details Date Type Department Care Team ([facility] st Contact Info) Description 01/08/2025 Refill [facility] [address] [place] [address] Lv Salguero MD [address] [place] [address] Secondary hypertension; Coronary artery disease involving [place] coronary artery, unspecified whether angina present, unspecified whether [place] or transplanted heart (CMS/HCC) Social History Tobacco Use Types Packs/Day Years Used Date Smoking Tobacco: Never Assessed Comments Unknown Sex and Gender Information Value Date Recorded Sex Assigned at Not on file Legal Sex Female 8:05 PM EDT Gender Identity Not on file Sexual Orientation Not on file documented as of this encounter Miscellaneous Notes * Telephone Encounter - WESLEY BRISCOE - 01/09/2025 11:18 AM EDT MEDICATION SENT TO [place] documented in this encounter Plan of Treatment Not on file documented as of this encounter Visit Diagnoses Diagnosis Secondary hypertension Other secondary hypertension, unspecified Coronary artery disease involving [place] coronary artery, unspecified whether angina present, unspecified whether [place] or transplanted heart (CMS/HCC) documented in this encounter Care Teams Wireless Construction Manager Relationship Specialty Start Date End Date Priya Hill MD [address] [place] [address] PCP - General Family Medicine 12/18/24 documented as of this encounter
== END 2025-01-23 20:40 | disposition home or self-care (01) ==
LOC: SLEEP 20:39
PROVIDERS: PCP Family Medicine; Visit Provider Family Medicine
DX: G47.33 Obstructive sleep apnea (adult) (pediatric) (principal)
CPT/HCPCS: 95810

== ENCOUNTER 2025-02-20 20:40 | Outpatient (OUT) | payer BC, SELFPAY ==
--- OUTSIDE RECORDS SUMMARY | 2025-02-09 11:07 | XMS_ITS | Encounter Summary ---
Author Organization [facility] Address [address] [place] [address] Care Team Providers Care Artificial Fly Tier Name Role Phone Priya Hill MD Primary Care Provider [phone] Encounter Details Date Type Department Care Team (Latest Contact Info) Description 02/09/2025 11:07 AM EDT - 02/09/2025 11:59 PM EDT Hospital Encounter [facility] [address] [place] [address] Discharge Disposition: Home or Self Care Social History Tobacco Use Types Packs/Day Years Used Date Smoking Tobacco: Never Assessed Comments Unknown Sex and Gender Information Value Date Recorded Sex Assigned at Not on file Legal Sex Female 4:20 AM EST Gender Identity Not on file Sexual Orientation Not on file documented as of this encounter Plan of Treatment Not on file documented as of this encounter Procedures Procedure Name Priority Date/Time Associated Diagnosis Comments CBC Routine 02/09/2025 11:07 AM EDT BASIC METABOLIC PANEL Routine 02/09/2025 11:07 AM EDT documented in this encounter Results * (ABNORMAL) CBC (02/09/2025 11:07 AM EDT) WBC 9.5 3.5 - 11.3 k/uL 02/09/2025 11:07 AM EDT [facility] RBC 5.24(H) 3.95 - 5.11 m/uL 02/09/2025 11:07 AM EDT [facility] Hemoglobin 14.1 11.9 - 15.1 g/dL 02/09/2025 11:07 AM EDT [facility] Hematocrit 44.3 36.3 - 47.1 % 02/09/2025 11:07 AM EDT [facility] MCV 84.5 82.6 - 102.9 fL 02/09/2025 11:07 AM EDT [facility] MCH 26.9 25.2 - 33.5 pg 02/09/2025 11:07 AM EDT [facility] MCHC 31.8 28.4 - 34.8 g/dL 02/09/2025 11:07 AM EDT [facility] RDW 14.3 11.8 - 14.4 % 02/09/2025 11:07 AM EDT [facility] Platelets 352 138 - 453 k/uL 02/09/2025 11:07 AM [facility] MPV 9.3 8.1 - 13.5 fL 02/09/2025 11:07 AM [facility] NRBC Automated 0.0 0.0 per 100 WBC 02/09/2025 11:07 AM [facility] 02/09/2025 11:0 7 AM EDT 02/09/2025 11:08 AM EDT us Lennox Brock MD HEMATOLOGY ORDERABLES Final Resu lt [facility] [address] [phone] * (ABNORMAL) Basic Metabolic Panel (02/09/2025 11:07 AM EDT) Sodium 139 136 - 145 mmol/L 02/09/2025 11:07 AM EDT [facility] Potassium 4.3 3.7 - 5.3 mmol/L 02/09/2025 11:07 AM [facility] Chloride 99 98 - 107 mmol/L 02/09/2025 11:07 AM EDT [facility] CO2 25 20 - 31 mmol/L 02/09/2025 11:07 AM EDT [facility] Anion Gap 15 9 - 16 mmol/L 02/09/2025 11:07 AM EDT [facility] Glucose 87 74 - 99 mg/dL 02/09/2025 11:07 AM EDT [facility] BUN 21(H) 6 - 20 mg/dL 02/09/2025 11:07 AM EDT [facility] Creatinine 0.9 0.50 - 0.90 mg/dL 02/09/2025 11:07 AM T [facility] Est, Glom Filt Rate 75 >60 mL/min/1.7 3m2 02/09/2025 11:07 AM EDT [facility] Comment: These results are not intended for use in patients <18 years of age. eGFR results are calculated without a race factor using the 2020 CKD-EPI equation. Careful clinical correlation is recommended, particularly when comparing to results calculated using previous equations. The CKD-EPI equation is less accurate in patients with extremes of muscle mass, extra-renal metabolism of creatine, excessive creatine ingestion, or following therapy that affects renal tubular secretion. BUN/Creatinine Ratio 23(H) 9 - 20 02/09/2025 11:07 AM EDT [facility] Calcium 9.4 8.6 - 10.4 mg/dL 02/09/2025 11:07 AM T [facility] 02/09/2025 11:0 7 AM EDT 02/09/2025 11:08 AM EDT us Lennox Brock MD CHEMISTRY ORDERABLES Final Resul t [facility] [address] [id number], [facility] [phone] documented in this encounter Visit Diagnoses Not on filedocumented in this encounter Care Teams Artificial Fly Tier Relationship Specialty Start Date End Date Priya Hill MD [address] [place] [address] PCP - General Family Medicine 02/09/25 documented as of this encounter
--- OUTSIDE RECORDS SUMMARY | 2025-02-15 09:21 | XMS_ITS | Encounter Summary ---
Author Organization [facility] Address [address] [place] [address] Care Team Providers Care Millwright Name Role Phone Priya Hill MD Primary Care Provider [phone] Reason for Referral * (Emergency) - Pending Review Specialty Diagnoses / Procedures Referred By Contac t Referred To Contact Procedures ECG 12 lead Lennox Brock MD [address] [place] [address] Phone: tel: fax: Referral ID Status Reason Start Date Expiration Date V isits Requested Visits Authorized [id number] Pending Review 02/15/2025 02/15/2026 1 1 * (Routine) - Pending Review Specialty Diagnoses / Procedures Referred By Contac t Referred To Contact Procedures ECG 12 lead Lennox Brock MD [address] [place] [address] Phone: tel: fax: Referral ID Status Reason Start Date Expiration Date V isits Requested Visits Authorized [id number] Pending Review 02/15/2025 02/15/2026 1 1 Reason for Visit * Auth/Cert (Routine) Specialty Diagnoses / Procedures Referred By Contac t Referred To Contact Diagnoses Atrial fibrillation with RVR (CMS/HCC) Atrial fibrillation with RVR (CMS/HCC) [I48.91] Procedures [place] CARDIOVERSION ELECTIVE ARRHYTHMIA EXTERNAL Cardioversion Andrea Die Welder, [address] [place], [place] [id number] Phone: tel: [facility] Heart [facility] [address] [place] [address] Phone: tel: fax: Referral ID Status Reason Start Date Expiration Date Visits Re quested Visits Authorized [id number] 1 1 Encounter Details Date Type Department Care Team (Late st Contact Info) Description 02/15/2025 9:21 AM EDT - 02/15/2025 11:56 AM EDT Hospital Encounter [facility] Heart [facility] [address] [place] [address] Lennox Brock MD [address] [place] [address] Atrial fibrillation with RVR (CMS/HCC) Discharge Disposition: Home or Self Care () Social History Tobacco Use Types Packs/Day Years Used Date Smoking Tobacco: Never Smokeless Tobacco: Never Alcohol Use Standard Drinks/Week Comments Not Currently 0 (1 standard drink = 0.6 oz pur e alcohol) Comments Unknown Sex and Gender Information Value Date Recorded Sex Assigned at Female 12/18/2024 5:43 PM EDT Legal Sex Female 2:07 PM EDT Gender Identity Female 12/18/2024 5:43 PM EDT Sexual Orientation Heterosexual or Straight 12/2024 5:43 PM EDT documented as of this encounter Last Filed Vital Signs Vital Sign Reading Time Taken Comments Blood Pressure 142/70 02/15/2025 11:45 AM EDT Pulse 66 02/15/2025 11:45 AM EDT Temperature - - Respiratory Rate 10 02/15/2025 11:45 AM EDT Oxygen Saturation 96% 02/15/2025 11:45 AM EDT Inhaled Oxygen Concentration - - Weight - - Height - - Body Mass Index - - documented in this encounter Discharge Instructions * Attachments The following attachments cannot be sent through Care Everywhere. * Moderate Conscious Sedation Adult Care After (Tajik) * Electrical Cardioversion Care After (Tajik) documented in this encounter Medications at Time of Discharge apixaban (Eliquis) 5 mg tabletIndications: Atrial fibrillation with RVR (CMS/HCC) Take 1 tablet (5 mg) by mouth two times daily. 180 tablet 3 01/10/2025 01/10/2026 furosemide (Lasix) 80 mg tabletIndications: Benign hypertensive heart disease with heart failure (CMS/HCC) Take 1 tablet (80 mg) by mouth in the morning. 90 tablet 3 12/22/2024 12/22/2025 losartan (Cozaar) 25 mg tablet Take 25 mg by mouth in the morning. 12/13/2024 metoprolol tartrate (Lopressor) 50 mg tabletIndications: Atrial fibrillation with RVR (CMS/HCC) Take 1 tablet (50 mg) by mouth two times daily. 180 tablet 3 12/22/2024 12/22/2025 spironolactone (Aldactone) 50 mg tabletIndications: Benign hypertensive heart disease with heart failure (CMS/HCC) Take 1 tablet (50 mg) by mouth in the morning. 90 tablet 3 12/22/2024 12/22/2025 Sprintec, 28, 0.25-35 mg-mcg tablet Take 1 tablet by mouth in the morning. 10/06/2024 documented as of this encounter H&P Notes * Lennox Brock MD - 02/15/2025 11:18 AM EDT Images from the original note were not included. [facility] Note Reason for cardiology consult: Newly diagnosed atrial fibrillation Chief Complaint: Dyspnea on exertion HPI: Shwetha Fernandez is a 44 y.o. female without prior cardiac history. She denies history of hypertension, hyperlipidemia or diabetes mellitus. The only medication she takes is control pills. She reports significant dyspnea on exertion for about 1 week which started gradually she denies anypalpitations. She denies any dizziness. She denies any chest discomfort. She denies orthopnea or paroxysmal nocturnal dyspnea. She admits legs edema. She admits snoring and being sleepy during the daytime and PCP already ordered sleep study Smoker. She denies alcohol or illicit drugs. She was evaluated in the hospital and she was found to be atrial fibrillation and CHF, also she wasnoted to have hypertension, she was started on [...] history of Abnormal ECG, Arrhythmia, Atrial fibrillation ([facility]), and CHF (congestive heart failure) ([facility]). Surgical History She has a [...] Allergies Patient has no known allergies. Medications No current facility-administered medications for this encounter. Last Recorded Vitals Visit Vitals BP 147/79 Pulse 76 Resp 17 SpO2 99% Smoking Status Never Physical Examination: GENERAL: alert and oriented x3, [...] Persistent atrial fibrillation with RVR (CMS/HCC) associated with congestive heart failure Acute congestive heart failure with preserved ejection fraction due to a combination of A-fib with RVR and uncontrolled hypertension Benign hypertensive heart disease with heart failure (CMS/HCC) Significant left ventricular hypertrophy, probably due to long-lasting uncontrolled hypertension, should consider other possibilities Mild hyperlipidemia Elevated liver enzymes High likelihood of sleep apnea Morbid obesity, BMI 64.13 kg/m?? Plan: Increase metoprolol tartrate (Lopressor) to 50 mg tablet; Take 1 tablet (50 mg) by mouth two times daily. Dispense: 180 tablet; Refill: 3, for rate control Transesophageal echo (BRIAN); Future Case Request EP Lab: Cardioversion as soon as possible Continue Eliquis Start spironolactone (Aldactone) 50 mg tablet; Take 1 tablet (50 mg) by mouth in the morning. Dispense: 90 tablet; Refill: 3 Increase furosemide (Lasix) to 80 mg tablet; Take 1 tablet (80 mg) by mouth in the morning. Dispense: 90 tablet; Refill: 3 BMP in about 5 days I asked the patient to check her blood pressure twice daily for 2 weeks and bring me the log Sleep study ordered by PCP Patient advised regarding the importance of losing weight by following strict low-calorie low-carb diet and exercising I discussed about cardioversion and the associated Immediate and longterm Risks as below and pt has agreed to proceed. Failure to convert: The electrical shock may not be strong enough to restore a regular heartbeat. Stroke: If a blood clot is present in the heart, the shock could dislodge it and cause a stroke. Low blood pressure: The shock may cause a temporary drop in blood pressure. Butcher: Skin butcher may occur where the electrodes are placed. Long-Term Risks: Recurrence of arrhythmia: The abnormal heartbeat may return after cardioversion. Heart damage: In rare cases, the electrical shock can damage the heart. Increased risk of blood clots: If the procedure is performed to treat atrial fibrillation, the riskof blood clots may increase in the correction. Lennox Brock MD documented in this encounter Procedure Notes * Lennox Brock MD - 02/15/2025 11:31 AM EDT DIRECT CARDIOVERSION PROCEDURE NOTE Date: 02/15/2025. Type of procedure: DC Cardioversion. Performed by: Lennox Brock MD Informed consent: Signed by patient. Preparation and technique: Patient was brought into the procedure room. After an informed consent was obtained following a discussion with the patient where I explained the risk and benefit of the procedure that is not limitedto skin butcher, fluid in the lungs, heart attack, stroke, or even , though that is very rare. Patches were placed in anteroposterior direction and once patient was made comfortable with Versed 2.5mg and Fentanyl 25mcg. Following sedation, the patient underwent synchronized cardioversion using 360J which failed to convert to sinus rhythm. Patches were reapplied and repeat DCCV converted to sinus. Post procedure, the patient was stable. No complications noted. Plan: Continue anticoagulation and consider ablation. Lennox Brock MD Cardiac Electrophysiology documented in this encounter Nursing Notes * Haritha Gonzales RN - 02/15/2025 11:47 AM EDT RN educated pt on d/c instructions. This included: site care, limited physical activity, resume normal diet, future appointments, medications, and moderate sedation instructions. RN educated pt on when to notify physician and when to go to the hospital. RN encouraged pt to voice any questions or concerns, and answered any questions or concerns if pt verbalized. Pt was wheeled off of unit with all of belongings. documented in this encounter Miscellaneous Notes * Pre-Sedation Documentation - Lennox Brock MD - 02/15/2025 11:18 AM EDT Patient: Shwetha Fernandez Procedure Information Date/Time: 02/15/25 1100 Procedure: Cardioversion - PC APPROVED Location: [facility] DIRECTOR [employer] HOLDING ROOM / [facility] (Cath) Providers: Lennox Brock MD Clinical information reviewed: Allergies Meds Physical Exam Airway Mallampati: II TM distance: >3 FB Neck ROM: full Cardiovascular Dental Pulmonary Neurological Abdominal Anesthesia Plan ASA 3 CSE Anesthetic plan and risks discussed with patient. Use of blood products discussed with patient who. Additional Equipment Requests documented in this encounter Plan of Treatment Upcoming Encounters Date Type Department Care Team (Late st Contact Info) Description 03/14/2025 11:20 AM EDT Follow-Up [facility] Heart [facility] [address] [place] [address] Erika Fournier MD [address] [place] [address] MS:[id number] [place] [address] documented as of this encounter Procedures Procedure Name Priority Date/Time Associated Diagnosis Comments ECG 12-LEAD STAT 02/15/2025 11:57 AM EDT CARDIOVERSION Routine 02/15/2025 11:29 AM EDT Atrial fibrillation with RVR (CMS/HCC) ECG 12-LEAD Routine 02/15/2025 10:08 AM EDT POCT , URINE Routine 02/15/2025 9:25 AM EDT documented in this encounter Results * ECG 12 lead (02/15/2025 11:57 AM EDT) Ventricular Rate 69 BPM GE MUSE Atrial Rate 69 BPM GE MUSE HI Interval 196 ms GE MUSE QRS DURATION 138 ms GE MUSE QT Interval 462 ms GE MUSE QTC CALCULATION(BAZE TT) 495 ms GE MUSE P [place] 11 degrees GE MUSE R-[place] -6 degrees GE MUSE T Wave [place] 57 degrees GE MUSE 02/15/2025 11:4 1 AM EDT 02/15/2025 2:20 PM EDT Impressions GE MUSE - 02/15/2025 2:20 PM EDT Normal sinus rhythm Non-specific intra-ventricular conduction block Minimal voltage criteria for LVH, may be normal variant ( [place] product ) Possible Anterolateral infarct , age undetermined Abnormal ECG When compared with ECG of 15-FEB-2025 09:40, Sinus rhythm has replaced Atrial fibrillation Confirmed by Patricia BANERJEE, L.S. (2) on 02/15/2025 2:20:05 PM Narrative Procedure Note Ailyn Banerjee MD - 02/15/2025 IMPRESSION: Normal sinus rhythm Non-specific intra-ventricular conduction block Minimal voltage criteria for LVH, may be normal variant ( [place] product ) Possible Anterolateral infarct , age undetermined Abnormal ECG When compared with ECG of 15-FEB-2025 09:40, Sinus rhythm has replaced Atrial fibrillation Confirmed by Patricia BANERJEE, L.S. (2) on 02/15/2025 2:20:05 PM us Lennox Brock MD ECG ORDERABLES Final Result GE MUSE * CARDIOVERSION (02/15/2025 11:29 AM EDT) Anatomical Region Laterality Modality Other Narrative 02/15/2025 11:30 AM EDT DIRECT CARDIOVERSION PROCEDURE NOTE Date: 02/15/2025. Type of procedure: DC Cardioversion. Performed by: Lennox Brock MD Informed consent: Signed by patient. Preparation and technique: Patient was brought into the procedure room. After an informed consent was obtained following a discussion with the patient where I explained the risk and benefit of the procedure that is not limited to skin butcher, fluid in the lungs, heart attack, stroke, or even , though that is very rare. Patches were placed in anteroposterior direction and once patient was made comfortable with Versed 2.5mg and Fentanyl 25mcg. Following sedation, the patient underwent synchronized cardioversion using 360J which failed to convert to sinus rhythm. Patches were reapplied and repeat DCCV converted to sinus. Post procedure, the patient was stable. No complications noted. Plan: Continue anticoagulation and consider ablation. Lennox Brock MD Cardiac Electrophysiology Erika Fournier MD CV ELECTROPHYSIOLOGY PROCEDURES Final Result * ECG 12 lead (02/15/2025 10:08 AM EDT) Ventricular Rate 87 BPM GE MUSE QRS DURATION 144 ms GE MUSE QT Interval 424 ms GE MUSE QTC CALCULATION(BAZE TT) 510 ms GE MUSE R-[place] -4 degrees GE MUSE T Wave [place] 23 degrees GE MUSE 02/15/2025 9:40 AM EDT 02/15/2025 10:29 AM EDT Impressions GE MUSE - 02/15/2025 10:29 AM EDT Atrial fibrillation Left bundle branch block Abnormal ECG No previous ECGs available Confirmed by Patricia GRAFF SAMER J. ([id number]) on 02/15/2025 10:29:23 AM Narrative Procedure Note Mayte Graff MD - 02/15/2025 IMPRESSION: Atrial fibrillation Left bundle branch block Abnormal ECG No previous ECGs available Confirmed by Patricia GRAFF SAMER J. ([id number]) on 02/15/2025 10:29:23 AM Lennox Brock MD ECG ORDERABLES Final Result GE MUSE * POCT , urine manually resulted (02/15/2025 9:25 AM EDT) Preg Test, Ur Negative QC Pass/Fail Passed QC LOT # [id number] QC Expiration Date 10/01/2025 Urine 02/15/2025 9:25 AM EDT Die Welder Andrea NOE POINT OF CARE TEST ENTER/E DIT ORDERABLES Final Result documented in this encounter Visit Diagnoses Diagnosis Atrial fibrillation with RVR (CMS/HCC)- Primary Atrial fibrillation with RVR (CMS/HCC) documented in this encounter Admitting Diagnoses Diagnosis Atrial fibrillation with RVR (CMS/HCC) documented in this encounter Active and Recently Administered Medications Times are shown in EDT. PRN Medication Order 02/13/2025 02/14/2025 02/15/2025 fentaNYL (Sublimaze) injection (CANCELED) As needed, Starting on Anh 02/15/25 at 1121, Intraprocedure 1121 (Given - Provid er: Haritha Gonzales RN) midazolam (Versed) injection (CANCELED) As needed, Starting on Anh 02/15/25 at 1121, Intraprocedure 1121 (Given - Provid er: Haritha Gonzales RN)1122 (Given - Provider: Haritha Gonzales RN)1123 (Given - Provider: Haritha Gonzales RN) documented in this encounter Care Teams Millwright Relationship Specialty Start Date End Date Priya Hill MD [facility] [place] [address] PCP - General 12/19/24 documented as of this encounter
--- OUTSIDE RECORDS SUMMARY | 2025-02-15 11:00 | XMS_ITS | Encounter Summary ---
Author Organization [facility] Address [address] [place] [address] Care Team Providers Care Crabbing Machine Operator Name Role Phone Priya Hill MD Primary Care Provider [phone] Reason for Visit * Auth/Cert (Routine) Specialty Diagnoses / Procedures Referred By Alia t Referred To Contact Diagnoses Atrial fibrillation with RVR (CMS/HCC) Atrial fibrillation with RVR (CMS/HCC) [I48.91] Procedures [place] CARDIOVERSION ELECTIVE ARRHYTHMIA EXTERNAL Cardioversion Andrea Bakery AssociateMD [address] [place] [address] Phone: tel: [facility] Heart [facility] [place] [facility] [address] [place] [address] Phone: tel: fax: Referral ID Status Reason Start Date Expiration Date Visits Re quested Visits Authorized [id number] 1 1 Encounter Details Date Type Department Care Team (Late st Contact Info) Description 02/15/2025 11:00 AM EDT - 02/15/2025 11:30 AM EDT Surgery [facility] Heart [facility] [address] [place] [address] Lennox Brock MD [address] [place] [address] Cardioversion Social History Tobacco Use Types Packs/Day Years [...] Sign Reading Time Taken Comments Blood Pressure 135/66 02/15/2025 11:24 AM EDT Pulse 77 02/15/2025 11:24 AM EDT Temperature - - Respiratory Rate 17 02/15/2025 11:24 AM EDT Oxygen Saturation 99% 02/15/2025 11:24 AM EDT Inhaled Oxygen Concentration - - Weight - - Height - - Body Mass Index - - documented in this encounter Discharge Instructions * Attachments The following attachments cannot be sent through Care Everywhere. * Moderate Conscious Sedation Adult Care After (Belizean) * Electrical Cardioversion Care After (Belizean) documented in this encounter Medications at Time [...] from the original note were not included. [facility] Note Reason for cardiology [...] history of Abnormal ECG, Arrhythmia, Atrial fibrillation ([facility]), and CHF (congestive heart failure) ([facility]/HCC). Surgical History She has a past surgical [...] about cardioversion and the associated Immediate and custodial Risks as below and pt has agreed [...] riskof blood clots may increase in the buttermaker helper. Lennox Brock MD documented in this encounter [...] 1100 Procedure: Cardioversion - PC APPROVED Location: [facility] HOLDING ROOM / [facility] (Cath) Providers: Lennox Brock [...] Info) Description 03/14/2025 11:20 AM EDT Follow-Up [place] [address] [place] [address] Erika Fournier MD [id number] [place] [address] documented as of this encounter Procedures Procedure Name Priority Date/Time Associated Diagnosis Comments ECG 12-LEAD STAT 02/15/2025 11:57 AM EDT CARDIOVERSION Routine 02/15/2025 11:29 AM EDT Atrial fibrillation with RVR (CMS/HCC) ECG 12-LEAD Routine 02/15/2025 10:08 AM EDT POCT , URINE Routine 02/15/2025 9:25 AM EDT documented in this encounter Results * ECG 12 lead (02/15/2025 11:57 AM EDT) Pathologist [facility] Ventricular Rate 69 BPM GE MUSE Atrial Rate 69 BPM GE MUSE [place] Interval 196 ms GE MUSE QRS DURATION 138 ms GE MUSE QT Interval 462 ms GE MUSE QTC CALCULATION(BAZE TT) 495 ms GE MUSE P [place] 11 degrees GE MUSE R-[place] -6 degrees GE MUSE T Wave [place] 57 degrees GE MUSE 02/15/2025 11:4 1 AM EDT 02/15/2025 2:20 PM EDT Impressions GE MUSE - 02/15/2025 2:20 PM EDT Normal sinus rhythm Non-specific intra-ventricular conduction block Minimal voltage criteria for LVH, may be normal variant ( [place] product ) Possible Anterolateral infarct , age undetermined Abnormal ECG When compared with ECG of 15-FEB-2025 09:40, Sinus rhythm has replaced Atrial fibrillation Confirmed by Patricia BANERJEE, L.S. (2) on 02/15/2025 2:20:05 PM Narrative Procedure Note Ailyn Banerjee MD - 02/15/2025 IMPRESSION: Normal sinus rhythm Non-specific intra-ventricular conduction block Minimal voltage criteria for LVH, may be normal variant ( [place] product ) Possible Anterolateral infarct , age undetermined Abnormal ECG When compared with ECG of 15-FEB-2025 09:40, Sinus rhythm has replaced Atrial fibrillation Confirmed by Patricia BANERJEE, L.S. (2) on 02/15/2025 2:20:05 PM Lennox Brock MD ECG ORDERABLES Final Result [...] QTC CALCULATION(BAZE TT) 510 ms GE MUSE R-[place] -4 degrees GE MUSE T Wave [place] 23 degrees GE MUSE 02/15/2025 9:40 AM [...] No previous ECGs available Confirmed by Patricia GRAFF, MAYTE Myers ([id number]) on 02/15/2025 10:29:23 AM Lennox Brock MD ECG ORDERABLES Final Result GE MUSE * POCT , urine manually resulted (02/15/2025 9:25 AM EDT) Preg Test, Ur Negative QC Pass/Fail Passed QC LOT # [id number] QC Expiration Date 10/01/2025 Urine 02/15/2025 9:25 AM EDT Bakery Associate Andrea NOE POINT OF CARE TEST ENTER/E DIT ORDERABLES Final Result documented in this encounter Visit Diagnoses Diagnosis Atrial fibrillation with RVR (CMS/HCC)- Primary Atrial fibrillation with RVR (CMS/HCC) documented in this encounter Admitting Diagnoses Diagnosis Atrial fibrillation with RVR (CMS/HCC) documented in this encounter Administered Medications Inactive Administered Medications - up to 3 most recent administrations Medication Order MAR Action Action Date Dose Rate Site fentaNYL (Sublimaze) injection As needed, Starting on Anh 02/15/25 at 1121, Intraprocedure Given 02/15/2025 11:21 AM EDT 25 mcg midazolam (Versed) injection As needed, Starting on Anh 02/15/25 at 1121, Intraprocedure Given 02/15/2025 11:23 AM EDT 0.5 mg Given 02/15/2025 11:22 AM EDT 1 mg Given 02/15/2025 11:21 AM EDT 1 mg documented in this encounter Active and Recently [...] RN) documented in this encounter Care Teams Crabbing Machine Operator Relationship Specialty Start Date End Date Priya Hill MD [address] [place] [place] [address] PCP - General 12/19/24 documented as of this encounter
--- OUTSIDE RECORDS SUMMARY | 2025-02-15 11:31 | XMS_ITS ---
Author Name Auto Generated Organization [facility] Care Team Providers Care Wiring Technician Name Role Phone LENNOX BROCK Referring Unavailable DAVINA FOURNIER Attending Unavailable JC COOPER Referring Unavailable DENIS PATTERSON Admitting Unavailable DENIS PATTERSON Attending Unavailable LENNOX BROCK Admitting Unavailable LENNOX BROCK Attending Unavailable LENNOX BROCK Referring Unavailable LENNOX BROCK Referring Unavailable PRIYA QUINONES Primary Care Unavailable Priya Quinones Attending Unavailable Priya Quinones Admitting Unavailable PROBLEMS DATE TYPE CONDITION / CODE ATTENDING STATUS [facility] 12/26/2024 Admitting Diagnosis Unspecified atrial fibrillation / I48.91(ICD-10) LENNOX BROCK Active [facility] 02/09/2025 Admitting diagnosis Unspecified atrial fibrillation (HCC) / I48.91(ICD-10) NA Active [facility] 12/22/2024 Admitting Diagnosis Hypertensive heart disease with heart failure / I11.0(ICD-10) DAVINA FOURNIER Active [facility] 12/22/2024 Admitting Diagnosis Paroxysmal atrial fibrillation / I48.0(ICD-10) DAVINA FOURNIER Active [facility] 12/12/2024 Admitting Diagnosis A-Fib with RVR / UNK(Unknown) DENIS PATTERSON Active [facility] 04/24/2024 Unknown Encounter for screening for malignant neoplasm of cervix / Z12.4(ICD-10) Priya Quinones [facility] PROCEDURES No Procedure Records Found RESULTS NURSNOTE Observed: 02/15/2025 11:47 AM Status: COMPLETED Source: [facility] RN educated pt on d/c instru ctions. This included: site care, limited physical activity, resume normal diet, future appointments, medications, and moderate sedation instructions. RN educated pt on when to notify physician and when to go to the hospital. RN encouraged pt to voice any questions or concerns, and answered any questions or concerns if pt verbalized. Pt was wheeled off of unit with all of belongings. PROCEDURE Observed: 02/15/2025 11:31 AM Status: COMPLETED Source: [facility] DIRECT CARDIOVERSION PROCEDU RE NOTE Date: 02/15/2025. Type of procedure: DC [...] consider ablation. Lennox Brock MD Cardiac Electrophysiology ANES Observed: 02/15/2025 11:18 AM Status: COMPLETED Source: [facility] Patient: Jacob Nguyen Procedure Information Date/Time: 02/15/25 1100 Procedure: Cardioversion - PC APPROVED Location: [facility] DOUBLE NEEDLE STITCHER HOLDING ROOM / [facility] VASCULAR LAB (Cath) Providers: Lennox Brock MD Clinical information reviewed: Allergies Meds Physical Exam Airway Mallampati: II TM distance: >3 FB Neck ROM: full Cardiovascular Dental Pulmonary Neurological Abdominal Anesthesia Plan ASA 3 CSE Anesthetic plan and risks discussed with patient. Use of blood products discussed with patient who. Additional Equipment Requests HP Observed: 02/15/2025 11:18 AM Status: COMPLETED Source: [facility] Office Cardiology Clinic Note Reason for cardiology consult: Newly diagnosed atrial fibrillation Chief Complaint: Dyspnea on exertion HPI: Jacob Nguyen is a 44 y.o. female without prior [...] history of Abnormal ECG, Arrhythmia, Atrial fibrillation (CMS/[facility]), and CHF (congestive heart failure) (CMS/[facility]). Surgical History She has a [...] of sleep apnea Morbid obesity, BMI 64.13 kg/m??? Plan: Increase metoprolol tartrate (Lopressor) to 50 [...] about cardioversion and the associated Immediate and half-way Risks as below and pt has agreed [...] is performed to treat atrial fibrillation, the risk of blood clots may increase in the technician terminal and repeater. Lennox Brock MD CBC Collected: 02/09/2025 11:07 AM Status: F Source: [facility] TYPE CODE TESTS RESULT OUT OF RANGE REFERENCE UNITS LAB WBC(LOINC) WBC Count 9.5 3.5-11.3 k/uL LAB RBC(LOINC) RBC Count 5.24 High 3.95-5.11 m/uL LAB HGB(LOINC) Hemoglobin 14.1 11.9-15.1 g/dL LAB HCT(LOINC) Hematocrit 44.3 36.3-47.1 % LAB MCV(LOINC) MCV 84.5 82.6-102.9 fL LAB MCH(LOINC) MCH 26.9 25.2-33.5 pg LAB MCHC(LOINC) MCHC 31.8 28.4-34.8 g/dL LAB RDW(LOINC) RDW 14.3 11.8-14.4 % LAB PLT(LOINC) Platelet Count 352 138-453 k/uL LAB MPVX(LOINC) MPV 9.3 8.1-13.5 fL LAB NRBCS(LOINC) NRBC Automated 0.0 0.0 per 100 WBC Performed By: #### BMP, CBC #### [facility] [address] [place], [place] [id number] Community Health Planning Director: Spenser Villa MD BASIC METABOLIC PROF Collected: 025 11:07 AM Status: F Source: [facility] TYPE CODE TESTS RESULT OUT OF RANGE REFERENCE UNITS LAB NA(LOINC) NA (Sodium) 139 136-145 mmol/L LAB K(LOINC) K (Potassium) 4.3 3.7-5.3 mmol/L LAB CL(LOINC) Chloride 99 98-107 mmol/L LAB HCO(LOINC) CO2 25 20-31 mmol/L LAB GAP(LOINC) Anion Gap 15 9-16 mmol/L LAB GLU(LOINC) Glucose 87 74-99 mg/dL LAB BUN(LOINC) BUN (Urea N) 21 High 6-20 mg/dL LAB CRE(LOINC) Creatinine 0.9 0.50-0.90 mg/dL LAB EGFR(LOINC) eGFR 75 >60 mL/min/1. 73m2 Result Comment: These results are not intended for [...] following therapy that affects renal tubular secretion. LAB BUNCRE(LOINC) BUN/CRE Ratio 23 High 9-20 LAB CA(LOINC) Calcium 9.4 8.6-10.4 mg/dL Performed By: #### BMP, CBC #### [facility] [address] [place] [id number] Community Health Planning Director: Spenser Villa MD ORDERS ONLY Observed: 02/08/2025 12:00 AM Status: COMPLETED Source: [facility] [id number] Jacob Nguyen 1980 F Date Provider Department Center 02/08/2025 DOLLY MÉNDEZ [facility] V[facility] HeartVAS Family History Problem Relation Age of Onset No Known Problems Mother No Known Problems Father Sleep apnea Brother Family Status - Relation Status Age at Mother Father Brother 36 Observed: 01/10/2025 10:32 AM Status: COMPLETED Source: [facility] Left message on [employer] requesting refill of Eliquis OFFICE VISIT Observed: 12/22/2024 2:40 PM Status: COMPLETED Source: [facility] [id number] Jacob Nguyen 0 1980 F Date Provider Department Center 12/22/2024 [id number] FOURNIER [facility] Family History Problem Relation Age of Onset No Known Problems Mother No Known Problems Father Sleep apnea Brother Family Status - Relation Status Age at Mother Father Brother Level of Service:47586 [place] OFFICE/OUTPATIENT NEW MODERATE MDM 45 MINUTES Reason for Visit and Comments: Atrial Fibrillation [80] - Recently diagnosed with afib and CHF. Sleep study has been ordered by PCP. Denies bleeding on Eliquis. Denies palpitations. Congestive Heart Failure [127] - Had echo 2 weeks rosa while inpatient at [facility]. Edema [[id number]] Dizziness [398133] - Says she gets dizzy and blacks out when she lies down. Says room is spinning . PROGRESS Observed: 12/22/2024 2:40 PM Status: COMPLETED Source: [facility] Office Cardiology Clinic Note Reason for cardiology consult: Newly diagnosed atrial fibrillation Chief Complaint: Dyspnea on exertion HPI: Jacob Nguyen is a 44 y.o. female without prior [...] history of Abnormal ECG, Arrhythmia, Atrial fibrillation (CMS/[facility]), and CHF (congestive heart failure) (CMS/[facility]). Surgical History She has a [...] of sleep apnea Morbid obesity, BMI 64.13 kg/m??? Plan: Increase metoprolol tartrate (Lopressor) to 50 [...] following strict low-calorie low-carb diet and exercising Follow-up with me about 2 weeks post BRIAN and cardioversion Davina Fournier MD,[facility] PAP IG, CTNG, RFX HPV APTIMA Collected: 04/24/2024 3:00 PM Status: F Source: [facility] TYPE CODE TESTS RESULT OUT OF RANGE REFERENCE UNITS LAB [id number] Pap IG Note . Result Comment: TESTS RESUL T FLAG UNITS REF RANGE LAB Clinician Provided Cytology Information No. of containers..01 ThinPrep Vial DIAGNOSIS: 01 NEGATIVE FOR INTRAEPITHELIAL LESION OR MALIGNANCY. Specimen adequacy: 01 Satisfactory for evaluation. Endocervical and/or squamous metaplastic cells (endocervical component) are present. Performed by: 01 Sarah Jean Baptiste, It Risk Analyst (ASCP) . 01 Note: Note 01 The [...] <-Panic Low,>-Panic High,A-Abnormal,AA-Critical Abnormal Performed at: [address] [address] Valarie Burris MD, LAB [id number] PAP Chlamydia ANA Negative Negative LAB [id number] PAP Gonococcus Negative Negative Result Comment: Performed at : WB - [facility] [address] [id number] Community Health Planning Director: Valarie Burris MD, Phone: [phone] Performed at: =G - [facility] [address] [id number] Community Health Planning Director: Valarie Burris MD, Phone: [phone] PERFORMED BY: [address] [place] [address] PATHOLOGIST SEASONING MIXER BHAKTI MORALES M.D. Performed By: #### PAP [id number] #### [facility] , ALLERGIES DATE TYPE / CODE NAME / CODE REACTION SEVERITY SOURCE 04/24/2024 Drug Allergy/1045165 02(SNOMED CT) No Known Allergies/[id number] (RXNORM) Unknown [facility] SYSTEMIC/298545 006(SNOMED CT) NO KNOWN ALLERGIES [facility] SYSTEMIC/017447 006(SNOMED CT) ALLERGIES NOT ON FILE [facility] ENCOUNTERS ADMIT/DISCHARGE ACCOUNT NUMBER ADMITTING ENCOUNTER CLASS LOCATION SOURCE 02/15/2025 [id number] Ambulatory Building:[facility] 02/15/2025 [id number] Ambulatory Building:[facility] 02/15/2025/02/16/20 [id number] LENNOX BROCK Ambulatory Buildin 0Room: [facility]: [facility] 02/09/2025/02/10/20 [id number] Ambulatory Building:[facility] 12/22/2024/12/23/19 [id number] Ambulatory Building:[facility] 12/12/2024 [id number] DENIS PATTERSON [facility]04/[facility]20 24 [id number] [facility] PAYERS ENCOUNTER GUARANTOR PAYER SUBSCRIBER SOURCE 02/15/2025 Primary Insurance:HERMINIO LAZO FLORIDAPolicy Number: [id number] ve Date:2023-08-16 JACOB Rubalcava FULLENDOB: [id number] [address] [facility] [address] [address] [facility] 02/15/2025 Primary Insurance:HERMINIO LAZO FLORIDAPolicy Number: [id number] ve Date:2023-08-16 JACOB Rubalcava FULLENDOB: [id number] [address] [facility] [address] [place] [address] [facility] 02/15/2025 Primary Insurance:HERMINIO LAZO FLORIDAPolicy Number: [id number] ve Date:2023-08-16 JACOB Rubalcava FULLENDOB: [id number] [facility] [address] [place] [address] [facility] 02/09/2025 JACOB FULLENDOB: [facility] [address], [place] [address]Qfj: (HP) Primary Insurance:[place] BETTIEBSPolicy Number: [id number] ve Date:2023-08-16 JACOB FULLENDOB: [id number] [facility] [address], [place] [address]Tct: (HP) [facility] 12/22/2024 Primary Insurance:HERMINIO LAZO OHIOPolicy Number: [id number] ve Date:2023-08-16 JACOB Rubalcava FULLENDOB: [id number] [facility] [address], [place] [address] [facility] 04/24/2024 Jacob Rubalcava [id number] [facility] [address], [place] [address]Qod: (HP) Primary Insurance:Keys BETTIE/BSPolicy Number: [id number] ve Date:2024-04-24 Jacob Rubalcava FullenDOB: [id number] [facility] [address], [place] [address]Jhy: (HP) [facility] 04/24/2024 Secondary Insurance:Self PayPolicy Number: Effective Date:2024-04-24 [facility]
--- OUTSIDE RECORDS SUMMARY | 2025-02-20 20:41 | XMS_ITS | Clinical Summary ---
Author Organization [facility] Address [address] [place] [address] Care Team Providers Care C D Still Operator Name Role Phone Priya Hill MD Primary Care Provider [phone] Medications losartan (Cozaar) 25 MG tabletIndications :Secondary hypertension TAKE 1 TABLET BY MOUTH DAILY 30 tablet 3 01/09/2025 Active apixaban (Eliquis) 5 MG tabletIndications :Coronary artery disease involving [place] coronary artery, unspecified whether angina present, unspecified whether [place] or transplanted heart TAKE 1 TABLET BY MOUTH 2 TIMES [...] Department Care Team Description 01/08/2025 Refill [facility] [address] [place] [address] Lv Salguero MD Secondary hypertension ; Coronary artery disease involving [place] coronary artery, unspecified whether angina present, unspecified whether [place] or transplanted heart 12/12/2024 Orders Only [facility] [address] [place] [address] Lv Salguero MD from Last 3 Months Social History Tobacco Use Types Packs/Day Years Used Date Smoking Tobacco: Never Assessed Comments Unknown Sex and Gender Information Value Date Recorded Sex Assigned at Not on file Legal Sex Female 8:05 PM EDT Gender Identity Not on file Sexual Orientation Not on file Plan of Treatment Not on file Insurance BCBS Care Teams C D Still Operator Relationship Specialty Start Date End Date Priya Hill MD [address] [place] [address] PCP - General Family Medicine 12/18/24
--- OUTSIDE RECORDS SUMMARY | 2025-02-20 20:41 | XMS_ITS | Encounter Summary ---
Author Organization [facility] Address [address] [place] [address] Care Team Providers Care Produce Weigher Name Role Phone Priya Hill MD Primary Care Provider [phone] Encounter Details Date Type Department Care Team (Latest Contact Info) Description 02/08/2025 Travel Social History Tobacco Use Types Packs/Day Years [...] PM EDT documented as of this encounter Plan of Treatment Upcoming Encounters Date Type Department Care Team (Late st Contact Info) Description 03/14/2025 11:20 AM EDT Follow-Up [facility] [address] [place] [address] Erika Fournier MD [address] [place] [place] [address] documented as of this encounter Visit Diagnoses Not on filedocumented in this encounter Care Teams Produce Weigher Relationship Specialty Start Date End Date Priya Hill MD [address] [facility] [place] [address] PCP - General 12/19/24 documented as of this encounter
--- OUTSIDE RECORDS SUMMARY | 2025-02-20 20:41 | XMS_ITS | Encounter Summary ---
Author Organization [facility] Address [address] [place] [address] Care Team Providers Care C Web Developer Name Role Phone Priya Hill MD Primary Care Provider [phone] Encounter Details Date Type Department Care Team (Latest Contact Info) Description 02/15/2025 Travel Social History Tobacco Use Types Packs/Day [...] 03/14/2025 11:20 AM EDT Follow-Up [facility] at [facility] [address] [place] [address] Erika Fournier MD [address] [place] [place] [address] documented as of this encounter Visit Diagnoses Not on filedocumented in this encounter Care Teams C Web Developer Relationship Specialty Start Date End Date Priya Hill MD [address] [address] [address] PCP - General 12/19/24 documented as of this encounter
--- OUTSIDE RECORDS SUMMARY | 2025-02-20 20:41 | XMS_ITS | Clinical Summary ---
Author Organization [facility] Address [address] [place] [address] Care Team Providers Care Bioprocess Engineer Name Role Phone Priya Hill MD Primary Care Provider [phone] Encounters Date Type Department Care Team Description 02/14/2025 Telephone [facility] [address] [place] [address] Christy Paris MA Lab results 02/09/2025 11:07 AM EDT - 02/09/2025 11:59 PM EDT Hospital Encounter [facility] [address] [place], [place] [id number] Discharge Disposition: Home or Self Care from Last 3 Months Social History Tobacco Use Types Packs/Day Years Used Date Smoking Tobacco: Never Assessed Comments Unknown Sex and Gender Information Value Date Recorded Sex Assigned at Not on file Legal Sex Female 4:20 AM EST Gender Identity Not on file Sexual Orientation Not on file Plan of Treatment Health Maintenance Due Date Last Done Comments Depression Screen 1990 HIV screen 1993 Hepatitis C screen 1996 DTaP/Tdap/Td vaccine (1 - Tdap) 1997 Hepatitis B vaccine (1 of 3 - 19+ 3-dose series) 1997 Pap smear 12/10/1999 Cervical cancer screen 2008 HPV (without or with Pap) 2008 Breast cancer screen 2018 Lipids 2018 Colonoscopy 12/10/2023 Colorectal Cancer Screen 12/10/2023 FIT/FOBT: Average risk 12/10/2023 Fecal-DNA (Cologuard): Average risk 12/10/2023 Sigmoidoscopy/CT colonography 12/10/2023 COVID-19 Vaccine ( - 2023-2 5 season) 2024 Flu vaccine (#1) 03/16/2025 HPV vaccine Aged Out No longer eligi ble based on patient's age to complete this topic Hepatitis A vaccine Aged Out No longe r eligible based on patient's age to complete this topic Hib vaccine Aged Out No longer eligi ble based on patient's age to complete this topic Meningococcal (ACWY) vaccine Aged Out No longer eligible based on patient's age to complete this topic Meningococcal B vaccine Aged Out No l onger eligible based on patient's age to complete this topic Pneumococcal 0-49 years Vaccine Aged Out No longer eligible based on patient's age to complete this topic Polio vaccine Aged Out No longer elig ible based on patient's age to complete this topic Procedures Procedure Name Priority Date/Time Associated Diagnosis Comments CBC Routine 02/09/2025 11:07 AM EDT BASIC METABOLIC PANEL Routine 02/09/2025 11:07 AM EDT from Last 3 Months Results * (ABNORMAL) CBC (02/09/2025 11:07 AM EDT) WBC 9.5 3.5 - 11.3 k/uL 02/09/2025 11:07 AM [facility] RBC 5.24(H) 3.95 - 5.11 m/uL 02/09/2025 11:07 AM [facility] Hemoglobin 14.1 11.9 - 15.1 g/dL 02/09/2025 11:07 AM [facility] Hematocrit 44.3 36.3 - 47.1 % 02/09/2025 11:07 AM [facility] MCV 84.5 82.6 - 102.9 fL 02/09/2025 11:07 AM [facility] MCH 26.9 25.2 - 33.5 pg 02/09/2025 11:07 AM [facility] MCHC 31.8 28.4 - 34.8 g/dL 02/09/2025 11:07 AM T [facility] RDW 14.3 11.8 - 14.4 % 02/09/2025 11:07 AM [facility] Platelets 352 138 - 453 k/uL 02/09/2025 11:07 AM [facility] MPV 9.3 8.1 - 13.5 fL 02/09/2025 11:07 AM [facility] NRBC Automated 0.0 0.0 per 100 WBC 02/09/2025 11:07 AM [facility] 02/09/2025 11:0 7 AM EDT 02/09/2025 11:08 AM EDT us Lennox Brock MD HEMATOLOGY ORDERABLES Final Resu lt [facility] [address] [phone] * (ABNORMAL) Basic Metabolic Panel (02/09/2025 11:07 AM EDT) Sodium 139 136 - 145 mmol/L 02/09/2025 11:07 AM [facility] Potassium 4.3 3.7 - 5.3 mmol/L 02/09/2025 11:07 AM [facility] Chloride 99 98 - 107 mmol/L 02/09/2025 11:07 AM [facility] CO2 25 20 - 31 mmol/L 02/09/2025 11:07 AM [facility] Anion Gap 15 9 - 16 mmol/L 02/09/2025 11:07 AM [facility] Glucose 87 74 - 99 mg/dL 02/09/2025 11:07 AM [facility] BUN 21(H) 6 - 20 mg/dL 02/09/2025 11:07 AM [facility] Creatinine 0.9 0.50 - 0.90 mg/dL 02/09/2025 11:07 AM EDT [facility] Est, Yoon Filt Rate 75 >60 mL/min/1.7 3m2 02/09/2025 11:07 AM EDT [facility] Comment: These results are not intended [...] 9 - 20 02/09/2025 11:07 AM EDT [facility] Calcium 9.4 8.6 - 10.4 mg/dL 02/09/2025 11:07 AM EDT [facility] 02/09/2025 11:0 7 AM EDT 02/09/2025 11:08 AM EDT us Lennox Brock MD CHEMISTRY ORDERABLES Final Resul t [facility] [address] [id number], [facility] [phone] from Last 3 Months Insurance Care Teams Bioprocess Engineer Relationship Specialty Start Date End Date Priya Hill MD [address] [place] [address] PCP - General Family Medicine 02/09/25
--- OUTSIDE RECORDS SUMMARY | 2025-02-20 20:41 | XMS_ITS | Clinical Summary ---
Author Organization [facility] Address [address] [place] [address] Care Team Providers Care Store Operations Specialist Name Role Phone Priya Hill MD Primary Care Provider [phone] Allergies No known active allergies Medications losartan (Cozaar) 25 mg tablet Take 25 mg by mouth in the morning. 5 Active Sprintec, 28, 0.25-35 mg-mcg tablet Take 1 tablet by mouth in the morning. 5 Active spironolactone (Aldactone) 50 mg tabletIndication s:Benign hypertensive heart disease with heart failure (CMS/HCC) Take 1 tablet (50 mg) by mouth in the morning. 90 tablet 3 5 026 Active furosemide (Lasix) 80 mg tabletIndication s:Benign hypertensive heart disease with heart failure (CMS/HCC) Take 1 tablet (80 mg) by mouth in the morning. 90 tablet 3 5 026 Active metoprolol tartrate (Lopressor) 50 mg tabletIndication s:Atrial fibrillation with RVR (CMS/HCC) Take 1 tablet (50 mg) by mouth two times daily. 180 tablet 3 5 026 Active apixaban (Eliquis) 5 mg tabletIndication s:Atrial fibrillation with RVR (CMS/HCC) Take 1 tablet (5 mg) by mouth two times daily. 180 tablet 3 5 026 Active metoprolol tartrate (Lopressor) 25 mg tablet Take 25 mg by mouth two times daily. 5 025 Discontinued furosemide (Lasix) 40 mg tablet Take 40 mg by mouth in the morning. 025 Discontinued Active Problems Problem Noted Date Diagnosed Date Atrial fibrillation with RVR 12/24/2024 Encounters Date Type Department Care Team Description 02/15/2025 11:00 AM EDT - 02/15/2025 11:30 AM EDT Surgery [facility] Heart [facility] Vascular Lab [address] [place] [address] Lennox Brock MD Cardioversion 02/15/2025 9:21 AM EDT - 02/15/2025 11:56 AM EDT Hospital Encounter [facility] Vascular Lab [address] [place] [address] Lennox Brock MD Atrial fibrillation with RVR (CMS/HCC) Discharge Disposition: Home or Self Care () 02/15/2025 Travel 02/08/2025 Travel 02/08/2025 Orders Only [facility] Vascular Lab [address] [place] [address] Andreina Swenson RN Atrial fibrillation with RVR (CMS/HCC) (Primary Dx) 01/10/2025 Refill [facility] Cardiology Clinic [address] [place] [address] Bernice Garcia MA Atrial fibrillation with RVR (CMS/HCC) 12/22/2024 2:40 PM EDT Office Visit [facility] Heart [address] [address] Erika Fournier MD Atrial fibrillation with RVR (CMS/HCC) (Primary Dx); Acute heart failure with normal ejection fraction (CMS/HCC); Benign hypertensive heart disease with heart failure (CMS/HCC); Left ventricular hypertrophy; Hyperlipidemia, unspecified hyperlipidemia type; Morbid obesity (CMS/HCC); Sleep apnea, unspecified type from Last 3 Months Immunizations Immunization Administration Dates Next Due Influenza, injectable, quadrivalent 07/11/2014 Influenza, recombinant, quad rivalent, injectable, preservative free 06/16/2019 Novel [id number], nasal 08/01/2009 Family History Medical History Relation [...] Info) Description 03/14/2025 11:20 AM EDT Follow-Up [facility] [address] [place] [address] Erika Fournier MD [address] [place] [address] MS:[address] [place] [address] Health Maintenance Due Date Last Done Comments CT Colonography 1978 Colonoscopy 1978 Colorectal Cancer Screening 1978 FIT-DNA 1978 FIT 1978 FOBT 1978 Sigmoidoscopy 1978 Depression Screening 1990 Hepatitis B Vaccines (1 of 3 - 19+ 3-dose series) 1997 Pneumococcal Vaccine: Pediatrics (0 to 5 Years) and At-Risk Patients (6 to 64 Years) (1 of 2 - PCV) 1997 Pap Smear 12/10/1999 Adult Tetanus 2000 Cervical Cancer Screening 2008 HPV/Cotest 2008 Mammogram 2018 COVID-19 Vaccine (1 - 2023-2 5 season) 2024 Influenza Vaccine (#1) 2025 9, 07/11/2014, 08/01/2009 Zoster Vaccines (1 of 2) [...] , URINE Routine 02/15/2025 9:25 AM EDT from Last 3 Months Results * ECG 12 lead (02/15/2025 11:57 AM EDT) Only the most recent of2 resultswithin the time period is included. Ventricular Rate 69 BPM GE MUSE Atrial Rate 69 BPM GE MUSE NE Interval 196 ms GE MUSE QRS DURATION 138 ms GE MUSE QT Interval 462 ms GE MUSE QTC CALCULATION(BAZE TT) 495 ms GE MUSE P Wilton 11 degrees GE MUSE R-Wilton -6 degrees GE MUSE T Wave Wilton 57 degrees GE MUSE 02/15/2025 11:4 1 AM EDT 02/15/2025 2:20 PM EDT Impressions PETER TORIBIO - 02/15/2025 2:20 PM EDT Normal sinus rhythm Non-specific intra-ventricular conduction block Minimal voltage criteria for LVH, may be normal variant ( Bronson product ) Possible Anterolateral infarct , age undetermined Abnormal ECG When compared with ECG of 15-FEB-2025 09:40, Sinus rhythm has replaced Atrial fibrillation Confirmed by Patricia BANERJEE, L.S. (2) on 02/15/2025 2:20:05 PM Narrative Procedure Note Ailyn Banerjee MD - 02/15/2025 IMPRESSION: Normal sinus rhythm Non-specific intra-ventricular conduction block Minimal voltage criteria for LVH, may be normal variant ( Bronson product ) Possible Anterolateral infarct , age undetermined Abnormal ECG When compared with ECG of 15-FEB-2025 09:40, Sinus rhythm has replaced Atrial fibrillation Confirmed by Patricia BANERJEE, L.S. (2) on 02/15/2025 2:20:05 PM Lennox Brock MD ECG ORDERABLES Final Result PETER TORIBIO * CARDIOVERSION (02/15/2025 11:29 AM EDT) Anatomical [...] MD CV ELECTROPHYSIOLOGY PROCEDURES Final Result * POCT , urine manually resulted (02/15/2025 9:25 AM EDT) Preg Test, Ur Negative QC Pass/Fail Passed QC LOT # [id number] QC Expiration Date 10/01/2025 Urine 02/15/2025 9:25 AM EDT Mechanical Piping Designer Andrea NOE POINT OF CARE TEST ENTER/E DIT ORDERABLES Final Result from Last 3 Months Insurance [facility] Care Teams Store Operations Specialist Relationship Specialty Start Date End Date Priya Hill MD [address] [place] [address] PCP - General 12/19/24
--- OUTSIDE RECORDS SUMMARY | 2025-02-20 20:41 | XMS_ITS | Encounter Summary ---
Author Organization [facility] Address [address] [place] [address] Care Team Providers Care Portrait Painter Name Role Phone Priya Hill MD Primary Care Provider [phone] Encounter Details Date Type Department Care Team (Late st Contact Info) Description 02/08/2025 Orders Only [facility] Vascular Lab [address] [place] [address] Andreina Swenson RN Atrial fibrillation with RVR (CMS/HCC) (Primary Dx) Social History Tobacco Use Types Packs/Day Years [...] Info) Description 03/14/2025 11:20 AM EDT Follow-Up [facility] Heart at [facility] [address] [place] [address] Erika Fournier MD [address] [facility] [id number] MS:[address] [place] [address] Scheduled Orders Name Type Priority Associated Diagnoses Orde r Schedule CBC Lab Routine Atrial fibrillation with RVR (CMS/HCC) Expected: 02/08/2025 (Approximate), Expires: 02/08/2026 Basic metabolic panel Lab Routine Atrial fibrillation with RVR (CMS/HCC) Expected: 02/08/2025 (Approximate), Expires: 02/08/2026 documented as of this encounter Visit Diagnoses Diagnosis Atrial fibrillation with RVR (CMS/HCC)- Primary documented in this encounter Care Teams Portrait Painter Relationship Specialty Start Date End Date Priya Hill MD [address] [place] [address] PCP - General 12/19/24 documented as of this encounter
--- OUTSIDE RECORDS SUMMARY | 2025-02-20 20:41 | XMS_ITS | Encounter Summary ---
Author Organization [facility] Address [address] [place] [address] Care Team Providers Care Manager Public Name Role Phone Priya Hill MD Primary Care Provider [phone] Reason for Visit * Reason Onset Date Comments Lab results 02/14/2025 Encounter Details Date Type Department Care Team (Late st Contact Info) Description 02/14/2025 Telephone [facility] NEUROLOGY Part of [address] [place] [address] Christy Paris MA Lab results Social History Tobacco Use Types Packs/Day Years [...] on filedocumented in this encounter Care Teams Manager Public Relationship Specialty Start Date End Date Priya Hill MD [address] [place] [address] PCP - General Family Medicine 02/09/25 documented as of this encounter
== END 2025-02-20 20:41 | disposition home or self-care (01) ==
LOC: SLEEP 20:40
PROVIDERS: PCP Family Medicine; Visit Provider Family Medicine
DX: G47.33 Obstructive sleep apnea (adult) (pediatric) (principal)
CPT/HCPCS: 95811

== ENCOUNTER 2025-05-16 14:37 | Outpatient (OUT) | payer BC, SELFPAY ==
--- OUTSIDE RECORDS SUMMARY | 2025-03-14 11:20 | XMS_ITS ---
Author Name Auto Generated Organization [facility] Care Team Providers Care Digital Ad Trafficker Name Role Phone DAVINA FOURNIER Attending Unavailable BRENDAN COOPER Referring Unavailable DENIS PATTERSON Admitting Unavailable DENIS PATTERSON Attending Unavailable ENEIDALENNOX Admitting Unavailable ENEIDALENNOX Attending Unavailable LENNOX BROCK Referring Unavailable LENNOX BROCK Referring Unavailable DAVINA FOURNIER Attending Unavailable ENEIDA, LENNOX Referring Unavailable JOSELYN QUINONES Primary Care Unavailable PROBLEMS DATE TYPE CONDITION / CODE ATTENDING STATUS [facility] 03/14/2025 Admitting Diagnosis Paroxysmal atrial fibrillation / I48.0(ICD-10) DAVINA FOURNIER Active [facility] 12/26/2024 Admitting Diagnosis Unspecified atrial fibrillation / I48.91(ICD-10) LENNOX BROCK Active [facility] 02/09/2025 Admitting diagnosis Unspecified atrial fibrillation (HCC) / I48.91(ICD-10) NA Active [facility] 12/22/2024 Admitting Diagnosis Hypertensive heart disease with heart failure / I11.0(ICD-10) DAVINA FOURNIER Active [facility] 12/12/2024 Admitting Diagnosis A-Fib with RVR / UNK(Unknown) DENIS PATTERSON Active [facility] PROCEDURES No Procedure Records Found RESULTS PROGRESS Observed: 03/14/2025 11:20 AM Status: COMPLETED Source: [facility] Office Cardiology Clinic Note Reason for cardiology visit: Follow-up on atrial fibrillation, HFpEF, hypertension, sleep apnea HPI: 03/14/2025 Patient is here today for follow-up visit. She called earlier after she had cardioversion that she had intermittent chest pain. But now she is denying that and she reports that she did not have any problem with chest pain. She denies exertional dyspnea, orthopnea or paroxysmal nocturnal dyspnea. She denies any recurrence of palpitations since the cardioversion. She denies dizziness or legs edema She has been wearing CPAP for the last 2-week and she feels somewhat better. She has not been checking her blood pressure at home. 12/22/2024 Jacob Nguyen is a 44 y.o. female [...] Eliquis. She still has shortness of breath ROS: All systems were reviewed and they were negative except for the positive findings noted above in the history Past Medical History She has a past medical history of Abnormal ECG, Arrhythmia, Atrial fibrillation (CMS/HCC), and CHF (congestive heart failure) (CMS/HCC). Surgical History She has a past surgical history that includes Tympanostomy tube placement; Tonsillectomy; Cholecystectomy; Appendectomy; and Foot surgery. Social History She reports that she has never smoked. She has never used smokeless tobacco. She reports that she does not currently use alcohol. She reports that she does not use drugs. Family History Family History Problem Relation Name Age of Onset No Known Problems Mother No Known Problems Father Sleep apnea Brother Allergies Patient has no known allergies. Medications Current Outpatient Medications: apixaban (Eliquis) 5 mg tablet, Take 1 tablet (5 mg) by mouth two times daily., Disp: 180 tablet, Rfl: 3 furosemide (Lasix) 80 mg tablet, Take 1 tablet (80 mg) by mouth in the morning., Disp: 90 tablet, Rfl: 3 losartan (Cozaar) 25 mg tablet, Take 25 mg by mouth in the morning., Disp: , Rfl: metoprolol tartrate (Lopressor) 50 mg tablet, Take 1 tablet (50 mg) by mouth two times daily., Disp: 180 tablet, Rfl: 3 spironolactone (Aldactone) 50 mg tablet, Take 1 tablet (50 mg) by mouth in the morning., Disp: 90 tablet, Rfl: 3 Sprintec, 28, 0.25-35 mg-mcg tablet, Take 1 tablet by mouth in the morning., Disp: , Rfl: Last Recorded Vitals Visit Vitals BP (!) 187/105 (BP Location: Right arm, Patient Position: Sitting) Pulse 81 Ht 1.6 m (5' 3 ) Wt (!) 163 kg (359 lb) SpO2 96% BMI 63.59 kg/m??? Smoking Status Never BSA 2.69 m??? Physical Examination: GENERAL: alert and oriented [...] PSYCH: appropriate mood, affect, and judgement. Labs: 02/09/2025 Sodium 139, potassium 4.3, glucose 87, BUN 21, creatinine 0.9, GFR 75, calcium 9.4 White blood count 9.5, hemoglobin 14.1, hematocrit 44.3, platelets 352 12/13/2024 White blood count 8.2, hemoglobin 12.7, hematocrit 39.7 platelets 311 Sodium 143, potassium 3.7, BUN 13, creatinine 0.84, GFR above 60, calcium 8.8, glucose 95 AST 38, ALT T104, alk phos 116, total protein 6.4, albumin 2.9 proBNP 4405, normal less than 450 High-sensitivity troponin negative TSH 3.295 Influenza A, influenza B and COVID are negative 04/24/2024 Sodium 141, potassium 3.7, BUN 13, creatinine 0.7 GFR above 60, glucose 96, calcium 9.1 Triglycerides 60, cholesterol 206, LDL 118, HDL 76 Last Images: EKG today 03/14/2025 showed normal sinus rhythm, heart rate 82 bpm, possible left atrial enlargement, left bundle branch block EKG 12/19/2024 showed atrial fibrillation with rapid ventricular rate, left bundle branch block EKG 12/12/2024 showed atrial fibrillation with rapid ventricular rate and left bundle branch block Echo 12/13/2024 Assessment and Plan: Persistent atrial fibrillation with RVR (CMS/HCC) associated with congestive heart failure S/p cardioversion 02/15/2025 which converted her to sinus rhythm On metoprolol 50 mg twice daily and Eliquis 5 mg twice daily. Maintaining normal sinus rhythm Acute congestive heart failure with preserved ejection fraction due to a combination of A-fib with RVR and uncontrolled hypertension On metoprolol, Cozaar, Aldactone, and Lasix. Clinically stable Benign hypertensive heart disease with heart failure (CMS/HCC) On metoprolol, Cozaar, Aldactone and Lasix. But blood pressure still significantly high. She does not check it at home Significant left ventricular hypertrophy, probably due to long-lasting uncontrolled hypertension, should consider other possibilities Left bundle branch block Mild hyperlipidemia Elevated liver enzymes Obstructive sleep apnea, she has been on CPAP for 1 week Morbid obesity, BMI 63.6 kg/m??? Significant anxiety Plan: Continue Cozaar, Aldactone and Lasix I will switch metoprolol to Coreg 25 mg twice daily I asked the patient to check her blood pressure twice daily at home and bring the blood pressure log in 2 weeks. Also advised that if she has any problem using the blood pressure monitor to call and bring it here to help her with that Will arrange for her to see Dr. Brock in a consult in couple weeks for possible A-fib ablation Continue to wear CPAP The patient was highly advised regarding following low calorie low-carb diet and exercise in order to lose weight. Follow-up with me in 2 months Davina Fournier MD,FACC FOLLOW-UP Observed: 03/14/2025 11:20 AM Status: COMPLETED Source: [facility] [id number] Jacob Nguyen M 0 1980 F Date Provider Department Center 03/14/2025 [id number] WILCOX [facility] Family History Problem Relation Age of Onset No Known Problems Mother No Known Problems Father Sleep apnea Brother Family Status - Relation Status Age at Mother Alive Father Brother Level of Service:19285 DC OFFICE/OUTPATIENT ESTABLISHED MOD MDM 30 MIN Reason for Visit and Comments: Atrial Fibrillation [80] S/P A-Fib Cardioversion [Other] LEA just started CPAP [Other] 29 Observed: 03/14/2025 11:20 AM Status: COMPLETED Source: [facility] Addended by: DAVINA FOURNIER n: 03/14/2025 12:42 PM Modules accepted: Orders 36 Observed: 02/27/2025 4:52 PM Status: COMPLETED Source: [facility] Phone call from patient, megan alston states she had 3 episodes of mild chest pain since her ablation, patient states it comes at night time and doesn't last very long, patient states its very concerning to her, patient denies any other symptoms. Patient refused ER. I did advise patient it was normal to have some chest pain after an ablation, patient is very concerned and crying, she wants you to know what's going on with her. Please advise. Lennox Brock MD to Me (Selected Message) 03/04/25 11:[address] Castillo for this 03/07/2025 LV left for patient to call and schedule and appointment with Dr. Fournier TELEPHONE Observed: 02/27/2025 12:00 AM Status: COMPLETED Source: [facility] [id number] Jacob Nguyen 0 1980 F Date Provider Department Center 02/27/2025 [id number] DAY Family History Problem Relation Age of Onset No Known Problems Mother No Known Problems Father Sleep apnea Brother Family Status - Relation Status Age at Mother Father Brother NURSNOTE Observed: 02/15/2025 11:47 AM Status: COMPLETED Source: [facility] RN educated pt on d/c instru ctions. [...] Observed: 02/15/2025 11:31 AM Status: COMPLETED Source: [facility] DIRECT CARDIOVERSION PROCEDU RE NOTE Date: 02/15/2025. [...] Observed: 02/15/2025 11:18 AM Status: COMPLETED Source: [facility] Patient: Jacob Nguyen Procedure Information Date/Time: 02/15/25 1100 Procedure: Cardioversion - PC APPROVED Location: [facility] SENIOR OPERATIONS MANAGER HOLDING ROOM / [facility] VASCULAR LAB (Cath) Providers: Lennox Brock MD Clinical information reviewed: Allergies Meds Physical Exam Airway Mallampati: II TM distance: >3 FB Neck ROM: full Cardiovascular Dental Pulmonary Neurological Abdominal Anesthesia Plan ASA 3 CSE Anesthetic plan and risks discussed with patient. Use of blood products discussed with patient who. Additional Equipment Requests HP Observed: 02/15/2025 11:18 AM Status: COMPLETED Source: [facility] Office Cardiology Clinic Note Reason for cardiology [...] history of Abnormal ECG, Arrhythmia, Atrial fibrillation ([facility]), and CHF (congestive heart failure) ([facility]). Surgical History She has a past surgical [...] no acute distress. HEAD: atraumatic, normocephalic. EYES: ANESLMO, EOMI. NECK: trachea midline, no JVD present, [...] about cardioversion and the associated Immediate and exterminator termite Risks as below and pt has agreed [...] of blood clots may increase in the intermediate manager. Lennox Brock MD CBC Collected: 02/09/2025 11:07 AM Status: F Source: [facility] TYPE CODE TESTS RESULT OUT OF [...] 0.0 per 100 WBC Performed By: #### GARY, CBC #### [facility] [address] [place] [address] Radio Electronics Technician: Spenser Villa MD BASIC METABOLIC PROF Collected: 025 11:07 AM Status: F Source: [facility] TYPE CODE TESTS RESULT OUT OF [...] Calcium 9.4 8.6-10.4 mg/dL Performed By: #### GARY, CBC #### [facility] [address] [place] [address] Radio Electronics Technician: Spenser Villa MD ORDERS ONLY Observed: 02/08/2025 12:00 AM Status: COMPLETED Source: [facility] [id number] Jacob Nguyen 1980 F Date Provider Department Center 02/08/2025 DOLLY MÉNDEZ [facility] Family History Problem Relation Age of Onset No Known Problems Mother No Known Problems Father Sleep apnea Brother Family Status - Relation Status Age at Mother Father Brother 36 Observed: 01/10/2025 10:32 AM Status: COMPLETED Source: [facility] Left message on Purple Binder e requesting refill of Eliquis PROGRESS Observed: 12/22/2024 2:40 PM Status: COMPLETED Source: [facility] [place] Office Cardiology Clinic Note Reason for cardiology [...] history of Abnormal ECG, Arrhythmia, Atrial fibrillation (CMS/HCC), and CHF (congestive heart failure) (CMS/HCC). Surgical History She has a past surgical [...] weeks post BRIAN and cardioversion Davina Fournier MD,[facility] OFFICE VISIT Observed: 12/22/2024 2:40 PM Status: COMPLETED Source: [facility] [id number] PatrickJacob M 1980 F Date Provider Department Center 12/22/2024 [id number] FOURNIER CARD [facility] Family History Problem Relation Age of Onset No Known Problems Mother No Known Problems Father Sleep apnea Brother Family Status - Relation Status Age at Mother Father Brother Level of Service:30934 DC OFFICE/OUTPATIENT NEW MODERATE MDM 45 MINUTES Reason for Visit and Comments: Atrial Fibrillation [80] - Recently diagnosed with afib and CHF. Sleep study has been ordered by PCP. Denies bleeding on Eliquis. Denies palpitations. Congestive Heart Failure [127] - Had echo 2 weeks rosa while inpatient at [facility]. Edema [[id number]] Dizziness [829532] - Says she gets dizzy and blacks out when she lies down. Says room is spinning . ALLERGIES DATE TYPE / CODE NAME / CODE REACTION SEVERITY SOURCE SYSTEMIC/33899016 6(SNOMED CT) NO KNOWN ALLERGIES [facility] SYSTEMIC/61950728 6(SNOMED CT) ALLERGIES NOT ON FILE [facility] ENCOUNTERS ADMIT/DISCHARGE ACCOUNT NUMBER ADMITTING ENCOUNTER CLASS LOCATION SOURCE 03/14/2025/03/14/20 [id number] [facility] 02/15/2025 [id number] Ambulatory Building:[facility] 02/15/2025 [id number] Ambulatory Building:[facility] 02/15/2025/02/16/20 [id number] LENNOX BROCK Ambulatory Buildin 0Room: [facility] VASCULAR POOLBed: [address] [facility] 02/09/2025/02/10/20 [id number] Ambulatory Building:[facility] 12/22/2024/05/09 [id number] Ambulatory Building:[facility] 12/12/2024 [id number] DENIS PATTRESON Inpatient Encounter Building:[facility] PAYERS ENCOUNTER GUARANTOR PAYER SUBSCRIBER SOURCE 03/14/2025 Primary Insurance:HERMINIO LAZO OHIOPolicy Number: [id number] ve Date:2023-08-16 JACOB Rubalcava FULLENDOB: [id number] [facility] [address] [place] [address] [facility] 02/15/2025 Primary Insurance:HERMINIO LAZO OHIOPolicy Number: [id number] ve Date:2023-08-16 JACOB Rubalcava FULLENDOB: [id number] [facility] [address] [place] [address] [facility] 02/15/2025 Primary Insurance:HERMINIO LAZO OHIOPolicy Number: [id number] ve Date:2023-08-16 JACOB Rubalcava FULLENDOB: [id number] [facility] [address] [place] [address] [facility] 02/15/2025 Primary Insurance:HERMINIO LAZO OHIOPolicy Number: [id number] ve Date:2023-08-16 JACOB Rubalcava FULLENDOB: [id number] [facility] [address] [place] [address] [facility] 02/09/2025 JACOB FULLENDOB: [facility] [address], [place] [address]Qtj: (HP) [place] Insurance:[place]: [id number] ve Date:2023-08-16 JACOB FULLENDOB: [id number] [facility] [address], [place] [address]Dgw: (HP) [facility] 12/22/2024 Primary Insurance:HERMINIO LAZO OHIOPolicy Number: [id number] ve Date:2023-08-16 JACOB Rubalcava FULLENDOB: [id number] [address] [facility]
--- OUTSIDE RECORDS SUMMARY | 2025-05-16 14:39 | XMS_ITS | Clinical Summary ---
Author Organization [facility] Address [address] [place] [address] Care Team Providers Care Hotel Controller Name Role Phone Priya Hill MD Primary Care Provider [phone] Medications losartan (Cozaar) 25 MG tabletIndications :Secondary hypertension TAKE 1 TABLET BY MOUTH DAILY 30 tablet 3 01/09/2025 Active apixaban (Eliquis) 5 MG tabletIndications :Coronary artery disease involving gambell coronary artery, unspecified whether angina present, unspecified whether gambell or transplanted heart TAKE 1 TABLET BY MOUTH 2 TIMES A DAY 60 tablet 3 01/09/2025 Active metoprolol tartrate (Lopressor) 25 MG tabletIndications :Secondary hypertension TAKE 1 TABLET BY MOUTH 2 TIMES A DAY 60 tablet 3 01/09/2025 Active furosemide (Lasix) 40 MG tabletIndications :Secondary hypertension TAKE 1 TABLET BY MOUTH DAILY 30 tablet 3 01/09/2025 Active Social History Tobacco Use Types Packs/Day Years Used Date Smoking Tobacco: Never Assessed Comments Unknown Sex and Gender Information Value Date Recorded Sex Assigned at Not on file Legal Sex Female 8:05 PM EDT Gender Identity Not on file Sexual Orientation Not on file Plan of Treatment Not on file Insurance BS Care Teams Hotel Controller Relationship Specialty Start Date End Date Priya Hill MD [address] [place] [address] PCP - General Family Medicine 12/18/24
--- OUTSIDE RECORDS SUMMARY | 2025-05-16 14:39 | XMS_ITS | Encounter Summary ---
Author Organization [facility] Address [address] [place] [address] Care Team Providers Care Packing Machine Can Feeder Name Role Phone Priya Hill MD Primary Care Provider [phone] Encounter Details Date Type Department Care Team (Late st Contact Info) Description 12/12/2024 Orders Only [facility] [address] [place] [address] Lv Salguero MD [address] [place] [address] Social History Tobacco Use Types Packs/Day Years [...] on filedocumented in this encounter Care Teams Packing Machine Can Feeder Relationship Specialty Start Date End Date Priya Hill MD [address] [place] [id number] PCP - General Family Medicine 12/18/24 documented as of this encounter
--- OUTSIDE RECORDS SUMMARY | 2025-05-16 14:39 | XMS_ITS | Clinical Summary ---
Author Organization [facility] Address [address], [address] [place] [address] Care Team Providers Care Community Youth Secretary Name Role Phone Priya Hill MD Primary Care Provider [phone] Encounters Date Type Department Care Team Description 02/14/2025 Telephone [facility] [address] [place] [id number] Christy Paris MA Lab results from Last 3 Months Social History Tobacco [...] (Cologuard): Average risk 12/10/2023 Sigmoidoscopy/CT colonography 12/10/2023 Flu vaccine (#1) 03/16/2025 COVID-19 Vaccine ( - 2023-2 5 season) 2025 HPV vaccine (No Doses Required) Completed Hepatitis A vaccine Aged Out No longe [...] on patient's age to complete this topic Insurance [address] [place] [address] [place] Care Teams Community Youth Secretary Relationship Specialty Start Date End Date Priya Hill MD [address] [place] [id number] PCP - General Family Medicine 02/09/25
== END 2025-05-16 14:38 | disposition home or self-care (01) ==
LOC: SLEEP 14:37
PROVIDERS: PCP Family Medicine; Visit Provider Psychiatry & Neurology Neurology
DX: G47.33 Obstructive sleep apnea (adult) (pediatric) (principal)